=== PATIENT | female | born 1970 | race Caucasian/White ===

== ENCOUNTER 2017-11-25 15:38 | Emergency (ER) | payer OTHER ==
[~2017-11-25] VITALS: Ht 152.4 cm; Wt 56.7 kg
[2017-11-25] MEDS ORDERED: ATOR20 PO (15:57)
[2017-11-25] MEDS ORDERED: CLON1 PO (15:57)
[2017-11-25] MEDS ORDERED: VITAMIN D250000 UNIT PO (15:57)
[2017-11-25] MEDS ORDERED: Ventolin/Prove6.7 GM INH (15:57)
[2017-11-25] MEDS ORDERED: METPRE4DP PO (15:57)
[2017-11-25 16:56] LABS: BASOPHILS ABSOLUTE AUTO 0.06 K/mm3 (0.00-0.23); BASOPHILS PERCENT AUTO 1 % (0-2); EOSINOPHILS ABSOLUTE AUTO 0.05 K/mm3 (0.00-0.68); EOSINOPHILS PERCENT AUTO 1 % (0-6); Hemoglobin 19.3 g/dL (11.5-16.0); IMMATURE GRAN ABSOLUTE AUTO 0.02 K/mm3 (0.00-0.10); IMMATURE GRAN PERCENT AUTO 0 % (0-1); LYMPHOCYTES PERCENT AUTO 23 % (21-46); MONOCYTES PERCENT AUTO 6 % (4-13); Mean Corpuscular HGB Conc 34.6 g/dL (31.5-36.5); Mean Corpuscular Volume 90 fL (80-100); NEUTROPHILS ABSOLUTE AUTO 6.25 K/mm3 (1.96-9.15); NEUTROPHILS PERCENT AUTO 70 % (41-73); Platelet Count 86 K/mm3 (150-400); RDW Coefficient Variation 12.6 % (11.7-14.2); RDW Standard Deviation 41.4 fL (35.1-46.3); Red Blood Cell Count 6.22 M/mm3 (3.80-5.20); White Blood Cell Count 8.98 K/mm3 (4.00-11.30)
[2017-11-25 17:01] LABS: Hematocrit 55.8 % (33.0-51.0)
[2017-11-25 17:15] LABS: Source, Urine Clean Catch
[2017-11-25 17:19] LABS: Ethanol (Alcohol), Blood, Med <3 mg/dL; Salicylate 9.9 mg/dL (2.8-20.0)
[2017-11-25 17:21] LABS: Appearance, Urine Clear (Clear); Bilirubin, Urine Neg (Neg); Blood, Urine 1+ (Neg); Color, Urine Yellow (P-Yellow); Glucose Qualitative, Urine Neg (Neg); Ketones, Urine 2+ (Neg); Leukocyte Esterase, Urine 2+ (Neg); Nitrite, Urine Neg (Neg); Protein, Urine Neg (Neg); Urobilinogen, Urine 1+ (Normal)
[2017-11-25 17:26] LABS: Alanine Aminotransfer (ALT/SGP 18 U/L (12-78); Albumin, Blood 3.9 g/dL (3.4-5.0); Alk Phos 145 U/L (50-136); Anion Gap 11 mmol/L (6-16); Aspartate Aminotrans (AST/SGOT 16 U/L (12-37); Bilirubin, Total 0.9 mg/dL (0.1-1.0); Blood Urea Nitrogen 6 mg/dL (8-24); CO2, Blood 25 mmol/L (21-32); Calcium, Blood 9.6 mg/dL (8.5-10.1); Chloride, Blood 97 mmol/L (98-108); Creatinine, Blood 0.67 mg/dL (0.40-1.00); Globulin, Blood 3.9 g/dL (2.2-4.0); Glomerular Filtration Rate >60 (60-); Glucose, Blood 94 mg/dL (70-99); Potassium, Blood 3.5 mmol/L (3.5-5.5); Sodium, Blood 133 mmol/L (136-145); Total Protein, Blood 7.8 g/dL (6.4-8.2)
[2017-11-25 17:42] LABS: U Amphetamine Screen Not Detected; U Barbituate Screen Not Detected; U Benzodiazapine Screen DETECTED; U Buprenorphine Screen Not Detected; U Cannabinoids Screen Not Detected; U Cocaine Screen Not Detected; U Methadone Screen Not Detected; U Methamphetamine Screen Not Detected; U Opiates Screen Not Detected; U Oxycodone Screen Not Detected; U Phencyclidine Screen Not Detected; U Propoxyphene Screen Not Detected
[2017-11-25 17:46] LABS: Bacteria Few /hpf; Squamous Epithelial Cells Mod /hpf (Few)
[2017-11-25 18:23] LABS: Acetaminophen, Random <2.0 ug/mL (10.0-30.0)
== END 2017-11-25 20:05 | disposition home or self-care (01) ==
LOC: ER 15:38
PROVIDERS: Internal Medicine
DX: T47.6X2A Poisoning by antidiarrheal drugs, intentional self-harm, initial encounter (principal); F41.9 Anxiety disorder, unspecified; F31.9 Bipolar disorder, unspecified; F17.200 Nicotine dependence, unspecified, uncomplicated; Z88.1 Allergy status to other antibiotic agents; Z88.8 Allergy status to other drugs, medicaments and biological substances; Z79.899 Other long term (current) drug therapy; R45.851 Suicidal ideations; F43.10 Post-traumatic stress disorder, unspecified
CPT/HCPCS: 80053; 81001; 81025; 84443; 85025; 87086; 99284; G0480; Q3014

== ENCOUNTER 2018-10-22 11:37 | Inpatient (IN) | payer OTHER ==
[~2018-10-22] VITALS: Ht 165.1 cm; Wt 54.8 kg
[~2018-10-22 11:37] MED LIST: ATOR20 PO; CLON1 PO; METPRE4DP PO; VITAMIN D250000 UNIT PO; Ventolin/Prove6.7 GM INH
[2018-10-22 12:00] LABS: Calcium, Ionized (POC) 0.98 mmol/L (1.10-1.46); Chloride (POC) 95 mmol/L (98-108); Creatinine (POC) 0.5 mg/dL (0.6-1.0); Glucose (ISTAT POC) 56 mg/dL (70-99); Hemoglobin (POC) 17.3 g/dL (12.0-16.0); Potassium (POC) 3.3 mmol/L (3.5-5.5); Sodium (POC) 133 mmol/L (135-148); Total CO2 (POC) 24 mmol/L (21-32)
[2018-10-22 12:02] LABS: BASOPHILS ABSOLUTE AUTO 0.04 K/mm3 (0.00-0.23); BASOPHILS PERCENT AUTO 0 % (0-2); EOSINOPHILS PERCENT AUTO 0 % (0-6); Hematocrit 47.9 % (33.0-51.0); Hemoglobin 16.3 g/dL (11.5-16.0); IMMATURE GRAN ABSOLUTE AUTO 0.08 K/mm3 (0.00-0.10); IMMATURE GRAN PERCENT AUTO 1 % (0-1); LYMPHOCYTES ABSOLUTE AUTO 1.27 K/mm3 (0.84-5.20); LYMPHOCYTES PERCENT AUTO 8 % (21-46); MONOCYTES PERCENT AUTO 9 % (4-13); Mean Corpuscular Volume 97 fL (80-100); Mean Platelet Volume 12.5 fL (9.1-12.4); NEUTROPHILS ABSOLUTE AUTO 13.95 K/mm3 (1.96-9.15); NEUTROPHILS PERCENT AUTO 82 % (41-73); Platelet Count 99 K/mm3 (150-400); RDW Standard Deviation 50.4 fL (35.1-46.3); Red Blood Cell Count 4.94 M/mm3 (3.80-5.20); White Blood Cell Count 16.94 K/mm3 (4.00-11.30)
[2018-10-22 12:25] LABS: Alanine Aminotransfer (ALT/SGP 30 U/L (12-78); Albumin, Blood 3.3 g/dL (3.4-5.0); Alk Phos 105 U/L (50-136); Anion Gap 10 mmol/L (6-16); Aspartate Aminotrans (AST/SGOT 75 U/L (12-37); Bilirubin, Total 0.8 mg/dL (0.1-1.0); Blood Urea Nitrogen 10 mg/dL (8-24); Bun/Creatinine Ratio 18.1 (12.0-20.0); CO2, Blood 25 mmol/L (21-32); Calcium, Blood 7.6 mg/dL (8.5-10.1); Chloride, Blood 100 mmol/L (98-108); Creatinine, Blood 0.55 mg/dL (0.40-1.00); Ethanol (Alcohol), Blood, Med 3 mg/dL; Globulin, Blood 3.4 g/dL (2.2-4.0); Glomerular Filtration Rate >60 (60-); Glucose, Blood 52 mg/dL (70-99); Potassium, Blood 3.4 mmol/L (3.5-5.5); Salicylate 6.1 mg/dL (2.8-20.0); Sodium, Blood 135 mmol/L (136-145); Thyroxine (T4) 10.1 ug/dL (4.8-13.9); Total Protein, Blood 6.7 g/dL (6.4-8.2)
[2018-10-22 12:30] LABS: Thyroid Stimulating Hormone 0.456 uIU/mL (0.360-4.800)
[2018-10-22 12:54] LABS: Acetaminophen, Random <2.0 ug/mL (10.0-30.0)
[2018-10-22 14:00] LABS: U Amphetamine Screen Not Detected; U Barbituate Screen Not Detected; U Benzodiazapine Screen Not Detected; U Buprenorphine Screen Not Detected; U Cannabinoids Screen Not Detected; U Cocaine Screen Not Detected; U Methadone Screen Not Detected; U Methamphetamine Screen Not Detected; U Opiates Screen Not Detected; U Oxycodone Screen Not Detected; U Phencyclidine Screen Not Detected; U Propoxyphene Screen Not Detected
[2018-10-22 14:35] LABS: PCO2 Arterial 37.4 mmHg (35-45); PO2 Arterial 244 mmHg (80-100); pH Blood Arterial 7.48 (7.35-7.45)
[2018-10-22] MEDS ORDERED: OLAN2.5 PO (14:50)
--- NOTE | 2018-10-22 14:50 | NUR ---
PATIENT IS UNRESPONSIVE UNCLE GAVE SNEBARRY PERMISSION TO PROVIDE CARE ON 10/23/18.
--- NOTE | 2018-10-22 17:09 | NUR ---
1425 PT ADMITTED TO ICU-16 VIA STRETCHER. PT HAVING COPIOUS ORAL SECRETIONS OF CLEAR RETURN. PT IS NOT RESPONSIVE TO VERBAL STIMULATION, ON PROPOFOL AT THIS TIME. NS AT 150MML AND DEC TO 100ML PER ORDER. HARRIS NOTED. UNCLE INDICATED PT HAS HAD CHRONIC DIARRHEA FOR 7-SANTO YEARS AND RX WITH IMODIUM PO. PT LUNGS CLEAR, ABD SOFT, HARRIS PATENT OF YELLOW URINE, IV'S TIMES 2. OG TO LIS WITH CLEAR AND OLD BLOODY FLECKS NOTED. PT IS RESTRAINED DUE TO INTUBATION AND ALC. PROPOFOL IS AT 40MCG. PT IS IN NSR. VENT AC 16, 350,45%, PEEP 5, AND WILL TITRATE FIO2 NEEDED.
[2018-10-22 17:22] LABS: Magnesium, Blood 1.7 mg/dL (1.6-2.4); Phosphorus, Blood 2.7 mg/dL (2.5-4.9)
--- NOTE | 2018-10-22 17:50 | NUR ---
1715 PT NOTED TO BE HAVING SOME TWITCHING PRIMARILY OF L THIGH. DR LOZANO AWARE. PROPOFOL INC TO 45MCG PT TOLERATES AND WILL CONT TO MONITOR FOR REPEAT ACTIVITY. TWITCHING ACTIVITY WAS NOTED FOR ABOUT 10 MIN+/-.
--- NOTE | 2018-10-22 18:33 | NUR ---
PT RESTING QUIETLY W/O TWITCHING SIGNS. BP SOMEWHAT LOW WITH INCREASE TO 45MCG OF PROPOFOL. PROPOFOL DEC. TO 35MCG AND WILL FOLLOW WITH NOTED BP'S. PT VENT SETTINGS NOTED. PT CONT COPIOUS CLEAR ORAL SECREATIONS. IVF NS AT 100ML AND PROPOFOL ABOVE. SATS GOOD.
--- NOTE | 2018-10-22 20:17 | NUR ---
START OF SHIFT: REPORT FROM DAYSI FLEMING. PT ON VENT: AC 16; Vt 350; PEEP 5.0; AND FiO2 25% SATS 98% PT LYING SUPINE HOB 30'. VSS. PT WITH COPIOUS AMOUNT OF CLEAR ORAL SECRETIONS DRAINING FROM MOUTH. PT GIVEN ORAL SUCTIONING. LS CLEAR. LILI 5mm. PT WITH TWITCHING TO LEFT LEG AND OCCASIONALLY FROM CORE. PT FEET POINTED SLIGHTLY INWARD BUT HANDS AND ARMS APPEAR RELAXED AND NORMAL POSITIONING. SKIN PWD. TEMP HARRIS TO GRAVITY PATENT AND DRAINING; TEMP CURRENTLY 99.7 DEGREES. OG TO LIS DRAINING CLEAR BROWN TINGED DRAINAGE WITH SOME SEDIMENTS. BILATERL SOFT WRIST RESTRAINTS IN PLACE. PT EXT CAP REFILL <2 X4 WITH STRONG PULSES X4. WILL CONTINUE TO MONITOR.
--- NOTE | 2018-10-23 01:04 | NUR ---
NO NEW CHANGES: PT REMAINS INTUBATED. VENT: AC 16; Vt 350; PEEP 5.0; FiO2 25%. VSS. LILI 5mm SLUGGISH. PROPOFOL TITRATED BETWEEN 30-40mcg/kg/min. PT CONTINUES WITH COPIOUS AMOUNT OF ORAL SECRETIONS. LEFT LEG AND TORSO TWITCHING COMES AND GOES. TURN Q2 HOURS. CONTINUE TO MONITOR.
[2018-10-23 03:29] LABS: BASOPHILS ABSOLUTE AUTO 0.03 K/mm3 (0.00-0.23); BASOPHILS PERCENT AUTO 0 % (0-2); EOSINOPHILS ABSOLUTE AUTO 0.01 K/mm3 (0.00-0.68); EOSINOPHILS PERCENT AUTO 0 % (0-6); Hematocrit 41.1 % (33.0-51.0); Hemoglobin 13.8 g/dL (11.5-16.0); IMMATURE GRAN ABSOLUTE AUTO 0.03 K/mm3 (0.00-0.10); IMMATURE GRAN PERCENT AUTO 0 % (0-1); LYMPHOCYTES ABSOLUTE AUTO 1.89 K/mm3 (0.84-5.20); LYMPHOCYTES PERCENT AUTO 18 % (21-46); MONOCYTES ABSOLUTE AUTO 0.62 K/mm3 (0.16-1.47); MONOCYTES PERCENT AUTO 6 % (4-13); Mean Corpuscular HGB 33.1 pg (26.0-34.0); Mean Corpuscular HGB Conc 33.6 g/dL (31.5-36.5); Mean Corpuscular Volume 99 fL (80-100); NEUTROPHILS ABSOLUTE AUTO 8.25 K/mm3 (1.96-9.15); NEUTROPHILS PERCENT AUTO 76 % (41-73); Platelet Count 74 K/mm3 (150-400); RDW Coefficient Variation 14.4 % (11.7-14.2); RDW Standard Deviation 52.5 fL (35.1-46.3); Red Blood Cell Count 4.17 M/mm3 (3.80-5.20); White Blood Cell Count 10.83 K/mm3 (4.00-11.30)
[2018-10-23 03:34] LABS: Mean Platelet Volume 13.6 fL (9.1-12.4)
[2018-10-23 03:48] LABS: Anion Gap 9 mmol/L (6-16); Blood Urea Nitrogen 6 mg/dL (8-24); Bun/Creatinine Ratio 10.3 (12.0-20.0); CO2, Blood 27 mmol/L (21-32); Calcium, Blood 6.9 mg/dL (8.5-10.1); Chloride, Blood 110 mmol/L (98-108); Creatinine, Blood 0.59 mg/dL (0.40-1.00); Glomerular Filtration Rate >60 (60-); Glucose, Blood 109 mg/dL (70-99); Potassium, Blood 2.7 mmol/L (3.5-5.5)
[2018-10-23 03:49] LABS: Sodium, Blood 146 mmol/L (136-145)
--- NOTE | 2018-10-23 05:30 | NUR ---
SEDATION VAC: PROPOFOL OFF AT 0517. PT'S TWITCHING HAS RETURNED. PT WITH OCCASIONAL EYE BLINKING BUT IS NOT FOLLOWING DIRECTIONS.
--- NOTE | 2018-10-23 06:13 | NUR ---
PT WITH NO NEW CHANGES T/O NOC: PT REMAINS IN A SLIGHT DECERABRATE POSTURING STATE WITH PLANTAR FLEXION. PT'S PUPILS REMAIN 5mm AND SLUGGISH FAVORING GAZE TO THE LEFT. PT BECAME SLIGHTLY HYPOTENSIVE. HOSPITALIST IN DEPT CAME TO BEDSIDE AND ORDERED NS 500cc BOLUS AND INCREASED PT'S INFUSION OF NS TO 125 FOR TWO LITERS. PT CONTINUES WITH COPIOUS AMOUNT OF ORAL SECRETIONS (125 cc OUT IN THE LAST HOUR). VENT SETTINGS REMAIN: AC 16; Vt 350; PEEP 5.0; FiO2 25%. PT'S KCL THIS AM 2.7 WITH NEW ORDER FOR REPLACEMENT. CURRENTLY PROPOFOL AT 25mcg/kg/min AND NS 125/hr. WILL CONTINUE TO MONITOR.
--- NOTE | 2018-10-23 07:00 | NUR ---
ASSUMED CARE OF PT. PT IS SEDATED WITH PROPOFOL AT 25MCG/KG/MIN. PT IS SLIGHTLY HYPOTENSIVE MOSTLY IN THE 80s. MAP >60. URINE OUTPUT CURRENTLY IS 85ML. WILL DO SEDATION VACATION
[2018-10-23 07:40] LABS: Magnesium, Blood 2.4 mg/dL (1.6-2.4); Phosphorus, Blood 2.2 mg/dL (2.5-4.9)
--- NOTE | 2018-10-23 08:00 | NUR ---
SEDATION VACATION: TURNED OFF PROPOFOL @ 0730. PROPOFOL WAS OFF FOR 30MINS. PT DOES NOT OPEN EYES TO VOICE NEITHER TO DEEP PAIN STIMULATION. CORNEAL AND COUGH REFLEX ARE PRESENT. GAG AND SWALLOWING REFLEXES ARE ABSENT. ABNORMAL FLEXION NOTED WITH SUCTIONING. INVOLUNTARY TREMORS NOTED ON HER LEFT LEG AND HEAD. NOT FOLLOWING COMMANDS. RESTARTED PROPOFOL BACK AFTER SEDATION VACATION TO 25MCG/KG/MIN DUE TO PT'S INCREASED MYCLONIC JERKS WHEN OFF SEDATION.
--- NOTE | 2018-10-23 08:10 | NUR ---
DR. AMBRIZ WAS NOTIFIED REGARDING PT'S BLOOD PRESSURE. ORDERS RECEIVED TO GIVE PT 500ML NS BOLUS.
--- NOTE | 2018-10-23 10:30 | NUR ---
BP STILL ON THE 80s. DR. SMITH WAS NOTIFIED REGARDING THIS. INFORMED REGARDING PT'S NEUROLOGICAL STATUS WELL. ORDERS RECEIVED.
--- NOTE | 2018-10-23 11:00 | NUR ---
PT'S UNCLE JESSICA, CAME BY TO SEE PATIENT. UPDATED HIM OF PT'S STATUS. HE STATED PT HAS A 27 YR OLD DAUGHTER AND PT'S PARENTS ARE STILL ALIVE.
--- NOTE | 2018-10-23 11:30 | NUR ---
DR. SMITH CAME BY TO EVALUATE PT. SHE WAS ABLE TO TALK TO PT'S UNCLE REGARDING PT'S CONDITION.
--- NOTE | 2018-10-23 13:00 | NUR ---
PT'S UNCLE JESSICA, CALLED AND STATED THAT WHEN HE REVIEWED PT'S MEDICATION BOTTLES THAT WERE FILLED, HE STATED THAT THE EMPTY BOTTLE WAS FROM THE JULY BOTTLE. THE AUGUST BOTTLE WAS STILL IN ACCURATE COUNT. HE STATED THAT THERE WAS NO CLONAZEPAM BOTTLE AT PT'S BEDSIDE WHEN SHE BECAME UNRESPONSIVE. HE JUST THOUGHT THAT MAYBE PT HAD OVERDOSED ON CLONAZEPAM DUE TO PT'S HISTORY.
[2018-10-23 13:17] LABS: Albumin, Blood 2.2 g/dL (3.4-5.0); Anion Gap 7 mmol/L (6-16); Blood Urea Nitrogen 6 mg/dL (8-24); Bun/Creatinine Ratio 10.4 (12.0-20.0); CO2, Blood 25 mmol/L (21-32); Calcium, Blood 6.8 mg/dL (8.5-10.1); Chloride, Blood 116 mmol/L (98-108); Creatinine, Blood 0.58 mg/dL (0.40-1.00); Glomerular Filtration Rate >60 (60-); Glucose, Blood 117 mg/dL (70-99); Phosphorus, Blood 1.5 mg/dL (2.5-4.9); Potassium, Blood 3.6 mmol/L (3.5-5.5); Sodium, Blood 148 mmol/L (136-145)
--- NOTE | 2018-10-23 13:45 | NUR ---
EEG WAS STARTED AT THIS TIME.
[2018-10-23 14:11] LABS: Source, Urine Catheter
[2018-10-23 14:27] LABS: Appearance, Urine Turbid (Clear); Bilirubin, Urine Neg (Neg); Blood, Urine Neg (Neg); Glucose Qualitative, Urine Neg (Neg); Ketones, Urine 1+ (Neg); Leukocyte Esterase, Urine 1+ (Neg); Nitrite, Urine Neg (Neg); Protein, Urine 2+ (Neg); Urobilinogen, Urine NORM (Normal)
--- NOTE | 2018-10-23 14:30 | NUR ---
EEG DONE AT THIS TIME.
[2018-10-23 14:47] LABS: Color, Urine Yellow (P-Yellow)
[2018-10-23 14:49] LABS: Amorphous Heavy (0-Heavy)
[2018-10-23 14:50] LABS: Red Blood Cells, Urine 0-2 /hpf (0-2); Squamous Epithelial Cells Rare /hpf (Few); White Blood Cells, Urine 0-2 /hpf (0-5)
[2018-10-23 14:51] LABS: Bacteria Few /hpf
[2018-10-23 14:59] LABS: U Amphetamine Screen Not Detected; U Barbituate Screen Not Detected; U Benzodiazapine Screen DETECTED; U Buprenorphine Screen Not Detected; U Cannabinoids Screen DETECTED; U Cocaine Screen Not Detected; U Methadone Screen Not Detected; U Methamphetamine Screen Not Detected; U Opiates Screen Not Detected; U Oxycodone Screen Not Detected; U Phencyclidine Screen Not Detected; U Propoxyphene Screen Not Detected
--- NOTE | 2018-10-23 15:31 | NUR ---
DR. SMITH WAS NOTIFIED REGARDING PT'S REPEAT URINE TOXICOLOGY RESULTS. INFORMED HER THAT PT'S BLOOD PRESSURE STILL ON THE 80s DESPITE THE 1.5 LITER NS BOLUS. SHE ORDERED TO KEEP MAP 60 AND GREATER.
--- NOTE | 2018-10-24 01:17 | NUR ---
DR. SMITH NOTIFIED OF PT'S LOWER LIP, AND NOW TONGUE AND LOWER JAW SWELLING. NO NEW ORDERS AT THIS TIME. WILL NOTIFY AGAIN IF SYMPTOMS WORSEN.
[2018-10-24 04:15] LABS: BASOPHILS ABSOLUTE AUTO 0.02 K/mm3 (0.00-0.23); BASOPHILS PERCENT AUTO 0 % (0-2); EOSINOPHILS ABSOLUTE AUTO 0.04 K/mm3 (0.00-0.68); EOSINOPHILS PERCENT AUTO 0 % (0-6); Hematocrit 37.7 % (33.0-51.0); Hemoglobin 12.3 g/dL (11.5-16.0); IMMATURE GRAN ABSOLUTE AUTO 0.03 K/mm3 (0.00-0.10); IMMATURE GRAN PERCENT AUTO 0 % (0-1); LYMPHOCYTES ABSOLUTE AUTO 2.51 K/mm3 (0.84-5.20); LYMPHOCYTES PERCENT AUTO 27 % (21-46); MONOCYTES PERCENT AUTO 5 % (4-13); Mean Corpuscular HGB 33.1 pg (26.0-34.0); Mean Corpuscular HGB Conc 32.6 g/dL (31.5-36.5); Mean Corpuscular Volume 101 fL (80-100); NEUTROPHILS ABSOLUTE AUTO 6.08 K/mm3 (1.96-9.15); NEUTROPHILS PERCENT AUTO 66 % (41-73); Platelet Count 69 K/mm3 (150-400); RDW Coefficient Variation 14.9 % (11.7-14.2); RDW Standard Deviation 55.1 fL (35.1-46.3); Red Blood Cell Count 3.72 M/mm3 (3.80-5.20); White Blood Cell Count 9.18 K/mm3 (4.00-11.30)
[2018-10-24 04:26] LABS: Alanine Aminotransfer (ALT/SGP 25 U/L (12-78); Albumin/Globulin Ratio 0.7 (0.8-1.8); Alk Phos 80 U/L (50-136); Anion Gap 6 mmol/L (6-16); Aspartate Aminotrans (AST/SGOT 88 U/L (12-37); Blood Urea Nitrogen 5 mg/dL (8-24); Bun/Creatinine Ratio 10.4 (12.0-20.0); CO2, Blood 27 mmol/L (21-32); Calcium, Blood 7.2 mg/dL (8.5-10.1); Chloride, Blood 118 mmol/L (98-108); Creatinine, Blood 0.48 mg/dL (0.40-1.00); Glomerular Filtration Rate >60 (60-); Glucose, Blood 103 mg/dL (70-99); Magnesium, Blood 2.5 mg/dL (1.6-2.4); Phosphorus, Blood 1.4 mg/dL (2.5-4.9); Potassium, Blood 2.9 mmol/L (3.5-5.5); Sodium, Blood 151 mmol/L (136-145)
[2018-10-24 04:36] LABS: Mean Platelet Volume 13.6 fL (9.1-12.4)
--- NOTE | 2018-10-24 04:41 | NUR ---
PT REMAINS UNRESPONSIVE, ALTHOUGH, SEEMINGLY MORE SENSITIVE TO REPOSITIONING. PT WITH COUGH BUT NO GAG. LS CLEAR. VSS. PT WITH LESS ORAL SECRETIONS THAN PREVIOUS SHIFT. NOT MYCLONIC JERKS THIS SHIFT THUS FAR EXCEPT FOR OCCASIONAL LEFT SHOULDER TWITCHES. VSS. CONTINUING TO MONITOR.
--- NOTE | 2018-10-24 05:26 | NUR ---
PROPOFOL OFF AT 0505. PT CONTINUES NON-RESPONSIVE. PT JUST NOW BEGINNING SLIGHT MYCLONIC JERKING OF LEFT SHOULDER.
--- NOTE | 2018-10-24 06:29 | NUR ---
PT REMAINED NON-RESPONSIVE T/O BREATHING TRIAL. MYOCLONIC JERKING MINIMAL COMPARED TO PREVIOUS DAYS. PROPOFOL RESTARTED AT 15 mcg/kg/min. VSS. VENT SETTINGS RETURNED TO AC 16; Vt 350; PEEP 5.0; FiO2 25%.
--- NOTE | 2018-10-24 07:04 | NUR ---
ASSUMED CARE OF PT. PT IS SEDATED WITH PROPOFOL @ 15MCG/KG/MIN. PT IS VENTED & INTUBATED. PT IS NOT ANY RESTRAINTS. NOT FOLLOWING COMMANDS.
--- NOTE | 2018-10-24 08:30 | NUR ---
SEDATION VACATION: PROPOFOL HAS BEEN OFF FOR 15MINS. DR. LEWIS CAME BY TO SEE PT. UPDATED HIM OF PT'S STATUS. PT'S NEUROLOGICAL STATUS IS: NO BABINSKI REFLEX, POSITIVE DOLL'S EYES. NOT FOLLOWING COMMANDS. DECORTICATE POSTURING NOTED. MINIMAL CORNEAL REFLEX. GAG, SWALLOW REFLEXES ARE ABSENT. PATELLAR REFLEX PRESENT. PUPILS ARE BRISKLY REACTIVE TO LIGHT WITH 4MM DILATION.
--- NOTE | 2018-10-24 10:00 | NUR ---
SEEN BY DR. LEWIS AGAIN. NOTED PT TO BE TWITCHING ON THE R ARM. PT HAS BEEN OFF PROPOFOL FOR AT LEAST ALMOST 2 HOURS.
--- NOTE | 2018-10-24 12:00 | NUR ---
NO NEUROLOGIC CHANGES NOTED FROM INITIAL ASSESSMENT. TUBE FEEDING WITH PIVOT 1.5 ORDERED.
--- NOTE | 2018-10-24 15:45 | NUR ---
PT'S FAMILY AT BEDSIDE. UPDATED THEM OF PT'S STATUS, PT'S NEUROLOGICAL CONDITION. EXPLAINED TO THEM REGARDING NEUROLOGICAL REFLEXES. REASONS OF PT'S UNRESPONSIVENESS.
--- NOTE | 2018-10-24 16:30 | NUR ---
Met with family. Her uncle is who she lives with. He states her father is next of kin and will be here in a few days. They state they make decisions as a family . Advised them we need a decision maker from the family. pt came to live with her uncle almost two years ago. She has had minimal medical care. She has chronic diarrhea. Uncle states he stopped providing her with alcohol about a year ago. He states she gets it form other sources. She has been over using imodium. she has terrible chronic back pain. uncle states he has given her some of his pain pills once in ahwil with not much help she has smoked minimal marijuana as far as he knows. She finds excuses to not go to appoinments. Family displays low education level struggling to understand her needs. They display lot of history of substance abuse. They relay her mental illness has been been severe. They want us to fix her diarrhea. family very attentive and admit that she manipulates them. Will update care manger for [facility] plan. Will see if APS has been involved with her. She moved here from [place]. reviewed care and plan.
[2018-10-24 16:32] LABS: Albumin, Blood 1.9 g/dL (3.4-5.0); Anion Gap 6 mmol/L (6-16); Blood Urea Nitrogen 5 mg/dL (8-24); Bun/Creatinine Ratio 10.4 (12.0-20.0); CO2, Blood 27 mmol/L (21-32); Calcium, Blood 7.2 mg/dL (8.5-10.1); Chloride, Blood 115 mmol/L (98-108); Creatinine, Blood 0.48 mg/dL (0.40-1.00); Glomerular Filtration Rate >60 (60-); Glucose, Blood 161 mg/dL (70-99); Magnesium, Blood 2.4 mg/dL (1.6-2.4); Phosphorus, Blood 2.7 mg/dL (2.5-4.9); Potassium, Blood 2.8 mmol/L (3.5-5.5); Sodium, Blood 148 mmol/L (136-145)
--- NOTE | 2018-10-24 17:15 | NUR ---
DR. LEWIS WAS NOTIFIED REGARDING 1600 LBAS. INFORMED HIM OF PT'S URINE OUTPUT OF 200ML FROM 0600 UNTIL THIS TIME. ORDERS RECEIVED.
--- NOTE | 2018-10-24 18:22 | NUR ---
SHIFT ASSESSMENT: PT IS STILL UNRESPONSIVE. NO SEDATION. NOT ON RESTRAINTS. PROPOFOL HAS BEEN OFF SINCE EARLY THIS MORNING. PT HAD A LARGE LIQUID, JELLY STOOL. PT IS ON TUBE FEEDING WHICH SHE IS TOLERATING. T-MAX IS 100.0. PT HAS BEEN RECEIVING POTASSIUM REPLACEMENTS.
--- NOTE | 2018-10-24 19:20 | NUR ---
ASSUMED CARE PT NOT SEDATED ON VENT WITH SETTINGS AT AC16/350/25%/5. PT DOES NOT HAVE ANY PURPOSEFUL MOVEMENT, NO GAG, NO SWALLOW, NO CORNEAL REFLEX OR WITHDRAWL FROM PAIN. PT DOES COUGH WITH DEEP SUCTION AND HAS COPIOUS ORAL AND ETT SECRETIONS. TF INITIATED TODAY AND CURRENTLY AT 20ML/HR WITH GOAL OF 30, PLAN TO INCREASE RESIDUALS ALLOW. VSS, ECG SHOWS SR AND O2 SATS >95%. D5 AND 100ML/HR.
--- NOTE | 2018-10-25 01:10 | NUR ---
SZ ACTIVITY PT HAVING RHYTHMIC TWITCHING TO LEFT HAD AND LEG. IMAGE CONSULTANT ANNEL HERE, UPDATED, REQUESTED AND OBTAINED ORDER FOR ATIVAN NOW AND PRN FOR SZ ACTIVITY. 4MG ADMINISTED WITH COMPLETE RESOLUTION OF RHYTHMIC TWITCHING.
[2018-10-25 04:36] LABS: BASOPHILS ABSOLUTE AUTO 0.03 K/mm3 (0.00-0.23); BASOPHILS PERCENT AUTO 0 % (0-2); EOSINOPHILS ABSOLUTE AUTO 0.08 K/mm3 (0.00-0.68); EOSINOPHILS PERCENT AUTO 1 % (0-6); Hematocrit 37.2 % (33.0-51.0); IMMATURE GRAN ABSOLUTE AUTO 0.02 K/mm3 (0.00-0.10); IMMATURE GRAN PERCENT AUTO 0 % (0-1); LYMPHOCYTES ABSOLUTE AUTO 2.37 K/mm3 (0.84-5.20); LYMPHOCYTES PERCENT AUTO 29 % (21-46); MONOCYTES ABSOLUTE AUTO 0.46 K/mm3 (0.16-1.47); MONOCYTES PERCENT AUTO 6 % (4-13); Mean Corpuscular HGB 32.5 pg (26.0-34.0); Mean Corpuscular HGB Conc 32.3 g/dL (31.5-36.5); Mean Corpuscular Volume 101 fL (80-100); NEUTROPHILS ABSOLUTE AUTO 5.16 K/mm3 (1.96-9.15); NEUTROPHILS PERCENT AUTO 64 % (41-73); Platelet Count 76 K/mm3 (150-400); RDW Coefficient Variation 14.6 % (11.7-14.2); RDW Standard Deviation 54.5 fL (35.1-46.3); Red Blood Cell Count 3.69 M/mm3 (3.80-5.20); White Blood Cell Count 8.12 K/mm3 (4.00-11.30)
[2018-10-25 04:50] LABS: Mean Platelet Volume 13.3 fL (9.1-12.4)
[2018-10-25 04:57] LABS: Anion Gap 6 mmol/L (6-16); Blood Urea Nitrogen 5 mg/dL (8-24); CO2, Blood 28 mmol/L (21-32); Calcium, Blood 7.4 mg/dL (8.5-10.1); Chloride, Blood 113 mmol/L (98-108); Creatinine, Blood 0.46 mg/dL (0.40-1.00); Glomerular Filtration Rate >60 (60-); Glucose, Blood 134 mg/dL (70-99); Magnesium, Blood 2.2 mg/dL (1.6-2.4); Phosphorus, Blood 2.2 mg/dL (2.5-4.9); Potassium, Blood 2.9 mmol/L (3.5-5.5); Sodium, Blood 147 mmol/L (136-145)
--- NOTE | 2018-10-25 05:18 | NUR ---
UPDATE PT HAS COPIOUS ORAL SECRETIONS WITH OCCASIONAL STREAKS OF BLOOD. BITE BLOCK INSERTED INTO MOUTH, ABLE TO VISUALIZE TONGUE LACERATIONS TO LEFT SIDE WELL SOME BLEEDING TO LEFT SIDE BUT UABLE TO DETERMINE WHERE LEFT SIDE BLEEDING IS COMING FROM. UNDERSIDE OF BETH IS ALSO MACERATED.
[2018-10-25 05:32] LABS: PCO2 Arterial 37.2 mmHg (35-45); PO2 Arterial 68.5 mmHg (80-100); pH Blood Arterial 7.49 (7.35-7.45)
--- NOTE | 2018-10-25 06:25 | NUR ---
SHIFT SUMMARY PT REMAINS INTUBATED WITH NO CHANGE TO PREVIOUSLY NOTED VENT SETTINGS. PT TOLERATED PS TRIAL THIS AM BUT IS UNRESPONSIVE, HAS NO GAG, SWALLOW OR CORNEAL REFLES BUT DOES COUGH. WHEN COUGHING, DECORDICATE POSTURING NOTED. NO FURTHER RHYTHMIC TWITCHING NOTED SINCE ATIVAN ADMINISTRATION. TF AT GOAL, NO RESIDUALS FOR SHIFT. D5 AT 100ML/HR AND NS TKO. #1 KCL BAG OF 3 STARTED ON ELECTROLYTE PROTOCOL. VSS, ECG SHOWS SR AND O2 SATS 95%. BITE BLOCK REMAINS IN PLACE.
--- NOTE | 2018-10-25 08:00 | NUR ---
0700-ASSUMED CARE OF PT. PT IS INTUBATED. NO SEDATION. PT IS NOT ON RESTRAINTS. PT DOES NOT OPEN EYES TO VOICE. PUPILS ARE REACTIVE 4MM DILATION PT NOT FOLLOWING COMMANDS. PT CORNEAL REFLEX NOTED. BABINSKI NEGATIVE. PT IS FLACCID. COUGH REFLEX NOTED WITH DECORTICATE MOVEMENTS WITH SUCTIONING. NOTED TO HAVE MILD TWITCHING TO HER R ARM. AFEBRILE. PT TOLERATING TUBE FEEDINGS.
--- NOTE | 2018-10-25 08:30 | NUR ---
PT SEEN BY DR. LEWIS. NOTED PT WAS HAVING SOME RHYTHMIC TWITCH ON THE R ARM. DR. LEWIS HAD NOTICED THIS WELL. UPDATED HIM OF PT'S STATUS. ORDERS RECEIVED.
--- NOTE | 2018-10-25 10:00 | NUR ---
DR. CASTANEDA CALLED AND UPDATED HIM OF PT'S STATUS. HE STATED TO HOLD THE PROPOFOL DRIP AND ATIVAN UNTIL HE ASSESSED THE PATIENT.
--- NOTE | 2018-10-25 10:20 | NUR ---
AFTER REPOSITIONING PATIENT, RHYTHMIC MOVEMENTS WERE NOTED TO BILATERAL ARMS, FASTER MOVEMENTS TO THE LEFT ARM THAN THE RIGHT.
--- NOTE | 2018-10-25 10:50 | NUR ---
CONSENT FOR LUMBAR PUNCTURE WAS OBTAINED DR. CASTANEDA. PT'S UNCLE JESSICA HAS CONSENTED. DR. CASTANEDA WAS ABLE TO TALK TO PT'S FATHER GRETCHEN. THIS NURSE WAS ABLE TO TALK TO PT'S FAMILY WELL AND STATED " I TRUST JESSICA. HE IS HER HANDS AND DIAL INSPECTOR. HE CAN SIGN CONSENT FOR HER."
--- NOTE | 2018-10-25 11:00 | NUR ---
DR. CASTANEDA AT BEDSIDE. ASSISTED HIM OF LUMBAR PUNCTURE PROCEDURE.
[2018-10-25 12:29] LABS: Appearance, CSF Clear (Clear); Color, CSF No Color (No Color)
[2018-10-25 12:30] LABS: RBC Count, CSF 22 /mm3 (0-0); WBC Count, CSF 3 /mm3 (0-5)
[2018-10-25 12:37] LABS: Glucose, CSF 77 mg/dL (40-70)
[2018-10-25 12:42] LABS: Appearance, CSF Clear (Clear); Color, CSF No Color (No Color); RBC Count, CSF 58 /mm3 (0-0); WBC Count, CSF 2 /mm3 (0-5)
--- NOTE | 2018-10-25 12:42 | NUR ---
PROPOFOL WAS STARTED ORDERED @ 30MCG/KG/MIN.
--- NOTE | 2018-10-25 14:30 | NUR ---
PT'S UNCLE JESSICA AT BEDSIDE. UPDATED HIM OF PT'S STATUS. STOOL SAMPLE WAS COLLECTED AND SENT TO THE LAB FOR C-DIFF @ 6286. PT'S UNCLE HAD SIGNED BLOOD CONSENT.
[2018-10-25 14:50] LABS: Cryptococcus Neoformans/Gattii Not Detected (NOT DETECT); Enterovirus Not Detected (NOT DETECT); Escherichia Coli K1 Not Detected (NOT DETECT); Haemophilus Influenza Not Detected (NOT DETECT); Herpes Simplex Virus 1 Not Detected (NOT DETECT); Herpes Simplex Virus 2 Not Detected (NOT DETECT); Human Herpesvirus 6 Not Detected (NOT DETECT); Human Parechovirus Not Detected (NOT DETECT); Listeria Monocytogenes Not Detected (NOT DETECT); Neisseria Meningitidis Not Detected (NOT DETECT); Streptococcus Agalactiae Not Detected (NOT DETECT); Streptococcus Pneumoniae Not Detected (NOT DETECT); Varicella Zoster Virus Not Detected (NOT DETECT)
[2018-10-25 16:24] LABS: Phosphorus, Blood 3.5 mg/dL (2.5-4.9); Potassium, Blood 3.6 mmol/L (3.5-5.5)
--- NOTE | 2018-10-25 17:15 | NUR ---
DR. AMBRIZ WAS NOTIFIED REGARDING PT'S COPIOUS AMOUNT OF ORAL SECRETIONS. ORDERS RECEIVED.
--- NOTE | 2018-10-25 18:00 | NUR ---
SHIFT SUMMARY: PT IS STILL INTUBATED, NOW SEDATED WITH PROPOFOL AT 20MCG/KG/MIN. STILL SOME INCREASED ORAL SECRETIONS. PRESENT REFLEXES ARE: CORNEAL, SWALLOW AND GAG. PT HAD AN EPISODE WERE SHE STARTED COUGHING HARD AND WAS HAVING BRONCHOSPASMS THAT IT DROPPED HER HR DOWN TO LOW 48 BEATS PER MIN FOR A SHORT PERIOD OF TIME. NO RHYTHMIC MOVEMENTS NOTED SINCE PT RECEIVED ATIVAN AND PROPOFOL.
--- NOTE | 2018-10-25 19:30 | NUR ---
ASSUMED CARE PT REMAINS INTUBATED-SETTINGS AT AC 16/350/25%/5 AND NOW SEDATED VIA PROPOFOL AT 20MCG/KG/MIN-TITRATE TO SZ ACTIVITY. NO SZ ACTIVITY NOTED AT THIS TIME. PT NOW HAS A GAG, CORNEAL AND OCCASIONAL SWALLOW REFLEX BUT DECORTICATE POSTURES WITH COUGHING. LP COMPLETED ON DAY SHIFT, BANDANGE IN PLACE LUMBAR REGION IS CDI. LR AT 75ML/HR, NS TKO, TF AT GOAL OF 30ML/HR WITH NO RESIDUAL. BP LOW BUT WITH ADEQUATE MAP, EKG SHOWS SR. SCOPOLAMINE PATCH IN PLACE BUT PT CONTINUES TO HAVE COPIOUS ORAL AND ETT SECRETIONS.
--- NOTE | 2018-10-26 01:09 | NUR ---
BRADYCARDIA HR INITIALLY IN THE 70-80'S AND OCCASIONALLY UP IN THE 90'S AT START OF SHIFT. NOW HR AT 52-66. PT NOT COUGHING WHEN NOTED. RHYTHM STRIP PLACED ON CHART AND IS NOW A SINUS ARRHYTHMIA. DISCUSSED WITH GUS BECKFORD ON STANDBY FOR NOW.
--- NOTE | 2018-10-26 01:30 | NUR ---
DONOR LINE CALL OUT TO DONOR LINE. SPOKE WITH COORDINATOR DOYLE AND REVIEWED PT'S RECORDS. PER DOYLE, PT POTENTIAL CANDIDATE FOR ORGAN DONATION. A COORDINATOR WILL COME BY LATER TODAY TO COMPLETE A MORE THOROUGH ASSESSMENT. DONOR LINE REQUESTS CALL BACK FOR DECLINE IN NEURO STATUS, WHEN A FAMILY DECISION MAKER HAS BEEN IDENTIFIED OR IF FAMILY DECIDES TO WITHDRAW CARE.
--- NOTE | 2018-10-26 02:01 | NUR ---
BRADYCARDIA #2 DURING REPOSITIONING/CLEANING STOOL PT BEGAN COUGHING. HR DROPPED TO 35-SRIP PLACED ON CHART. COPIOUS ORAL & ETT SECRETIONS SUCTIONED. HR RETURNED TO 70'S WITHIN 2 MINUTES.
[2018-10-26 03:59] LABS: BASOPHILS ABSOLUTE AUTO 0.03 K/mm3 (0.00-0.23); BASOPHILS PERCENT AUTO 0 % (0-2); EOSINOPHILS ABSOLUTE AUTO 0.33 K/mm3 (0.00-0.68); EOSINOPHILS PERCENT AUTO 5 % (0-6); Hematocrit 35.1 % (33.0-51.0); Hemoglobin 11.5 g/dL (11.5-16.0); IMMATURE GRAN ABSOLUTE AUTO 0.02 K/mm3 (0.00-0.10); IMMATURE GRAN PERCENT AUTO 0 % (0-1); LYMPHOCYTES ABSOLUTE AUTO 2.48 K/mm3 (0.84-5.20); LYMPHOCYTES PERCENT AUTO 35 % (21-46); MONOCYTES ABSOLUTE AUTO 0.64 K/mm3 (0.16-1.47); MONOCYTES PERCENT AUTO 9 % (4-13); Mean Corpuscular HGB 33.6 pg (26.0-34.0); Mean Corpuscular HGB Conc 32.8 g/dL (31.5-36.5); Mean Corpuscular Volume 103 fL (80-100); Mean Platelet Volume 12.3 fL (9.1-12.4); NEUTROPHILS PERCENT AUTO 50 % (41-73); Platelet Count 81 K/mm3 (150-400); RDW Coefficient Variation 14.3 % (11.7-14.2); RDW Standard Deviation 54.4 fL (35.1-46.3); Red Blood Cell Count 3.42 M/mm3 (3.80-5.20)
[2018-10-26 04:20] LABS: Alanine Aminotransfer (ALT/SGP 21 U/L (12-78); Albumin, Blood 1.8 g/dL (3.4-5.0); Albumin/Globulin Ratio 0.6 (0.8-1.8); Alk Phos 74 U/L (50-136); Anion Gap 6 mmol/L (6-16); Aspartate Aminotrans (AST/SGOT 49 U/L (12-37); Bilirubin, Total 0.3 mg/dL (0.1-1.0); Blood Urea Nitrogen 7 mg/dL (8-24); Bun/Creatinine Ratio 15.2 (12.0-20.0); CO2, Blood 29 mmol/L (21-32); Calcium, Blood 7.6 mg/dL (8.5-10.1); Chloride, Blood 111 mmol/L (98-108); Creatinine, Blood 0.46 mg/dL (0.40-1.00); Glomerular Filtration Rate >60 (60-); Glucose, Blood 106 mg/dL (70-99); Magnesium, Blood 1.9 mg/dL (1.6-2.4); Potassium, Blood 3.9 mmol/L (3.5-5.5); Sodium, Blood 146 mmol/L (136-145); Total Protein, Blood 4.8 g/dL (6.4-8.2)
[2018-10-26 04:23] LABS: Phosphorus, Blood 3.4 mg/dL (2.5-4.9)
[2018-10-26 05:29] LABS: PCO2 Arterial 35.9 mmHg (35-45); PO2 Arterial 67.6 mmHg (80-100)
--- NOTE | 2018-10-26 07:09 | NUR ---
SHIFT SUMMARY SEE PREVIOUS NOTES FOR SHIFT. PT REMAINS INTUBATED, NO CHANGE TO PREVIOSLY NOTED SETTINGS. PT REMAINS UNRESPONSIVE, + COUGH, OCCASIONAL GAG AND CORNEAL REFLEX. PROPOFOL AT 10MCG/KG/MIN, LR AT 75ML/HR, TF AT GOAL WITH NO RESIDUALS. BP LOW BUT ADEQUATE MAP AND UOP. PT HAD TWO BRADYCARDIC EPISODES BUT NOTHING FURTHER. REPORT OFF TO GRZEGORZY.
--- NOTE | 2018-10-26 08:30 | NUR ---
INITIAL ASSESSMENT: 0700-ASSUMED CARE OF PT. PT IS SEDATED WITH PROPOFOL @ 10MCG/KG/MIN. PT IS AFEBRILE. 729-TURNED OFF PROPOFOL AT THIS TIME FOR SEDATION VACATION. 08-PT SEEN BY DR. LEWIS. INFORMED HIM THAT PT'S HAD EPISODES OF BRADYCARDIA AFTER BOUTS OF COUGHING TO LOW MID 30s. PUPILS ARE REACTIVE TO LIGHT BUT ANISOCORIC. LEFT PUPIL IS SLIGHTLY BIGGER THAN RIGHT. R PUPIL ABOUT 3.5 LEFT PUPIL ABOUT A 4MM DILATION. LEFT PUPIL GAZES TO THE LEFT WHILE RIGHT PUPIL IS GAZING STRAIGHT FORWARD. NO SEIZURE ACTIVITY NOTED WHILE SEDATION IS OFF. SEDATION HAS BEEN OFF FOR 30MINS. NO BABINSKI REFLEX, CORNEAL REFLEX NOTED, SLIGHT SWALLOWING REFLEX NOTED BUT NOT GAG REFLEX NOTED. PT IS FLACCID. NO PURPOSEFUL MOVEMENT NOTED. 828-RESTARTED PROPOFOL DRIP AT THIS TIME @ 10MCG/KG/MIN. CHANGED TUBE FEEDING BOTTLE AND TUBINGS.
--- NOTE | 2018-10-26 08:31 | NUR ---
INITIAL ASSESSMENT: 0700-ASSUMED CARE OF PT. PT IS SEDATED WITH PROPOFOL @ 10MCG/KG/MIN. PT IS AFEBRILE. 729-TURNED OFF PROPOFOL AT THIS TIME FOR SEDATION VACATION. 08-PT SEEN BY DR. LEWIS. INFORMED HIM THAT PT'S HAD EPISODES OF BRADYCARDIA AFTER BOUTS OF COUGHING TO LOW MID 30s. PUPILS ARE REACTIVE TO LIGHT BUT ANISOCORIC. LEFT PUPIL IS SLIGHTLY BIGGER THAN RIGHT. R PUPIL ABOUT 3.5 LEFT PUPIL ABOUT A 4MM DILATION. LEFT PUPIL GAZES TO THE RIGT WHILE RIGHT PUPIL IS GAZING STRAIGHT FORWARD. NO SEIZURE ACTIVITY NOTED WHILE SEDATION IS OFF. SEDATION HAS BEEN OFF FOR 30MINS. NO BABINSKI REFLEX, CORNEAL REFLEX NOTED, SLIGHT SWALLOWING REFLEX NOTED BUT NOT GAG REFLEX NOTED. PT IS FLACCID. NO PURPOSEFUL MOVEMENT NOTED. 828-RESTARTED PROPOFOL DRIP AT THIS TIME @ 10MCG/KG/MIN. CHANGED TUBE FEEDING BOTTLE AND TUBINGS.
--- NOTE | 2018-10-26 08:43 | NUR ---
DR. LEWIS IS AWARE OF THE COPIOUS AMOUNT OF ORAL SECRETIONS WITHIN THE 24HOUR TIME PERIOD.
--- NOTE | 2018-10-26 09:55 | NUR ---
899-TOOK PATIENT TO RADIOLOGY FOR HEAD CT. 929-PT BACK IN THE ROOM. [facility]. UPDATED HIM OF PT'S STATUS. 954-DR. AMBRIZ AT BEDSIDE. UPDATED HER OF PT'S STATUS. SHE TALKED TO PT'S UNCLE REGARDING PT'S PROGNOSIS.
--- NOTE | 2018-10-26 11:11 | NUR ---
1048-DR. CASTANEDA AT BEDSIDE. EVALUATING PATIENT. UPDATED HIM OF PT'S STATUS.
--- NOTE | 2018-10-26 14:04 | NUR ---
DR. LEWIS WAS NOTIFIED REGARDING PT'S BLOOD PRESSURE IN THE 70s. CURRENT BLOOD PRESSURE IS 73/59. ORDERS RECEIVED
[2018-10-26 15:00] LABS: Dilantin (Phenytoin), Total 16.5 ug/mL (10.0-20.0)
--- NOTE | 2018-10-26 15:04 | NUR ---
BP CURRENTLY 75/55 DESPITE 1 LITER OF LR BOLUS. DR. LEWIS WAS NOTIFIED. ORDERS RECEIVED.
--- NOTE | 2018-10-26 16:33 | NUR ---
PT HAD AN EPISODE OF BRADYCARDIA AGAIN TO LOW 40 BEATS PER MINUTE. PT'S FATHER GRETCHEN CALLED. UPDATED HIM OF PT'S CONDITION.
[2018-10-26 16:40] LABS: Hematocrit 35.9 % (33.0-51.0); Hemoglobin 11.8 g/dL (11.5-16.0)
[2018-10-26 17:08] LABS: Anion Gap 6 mmol/L (6-16); Blood Urea Nitrogen 6 mg/dL (8-24); CO2, Blood 27 mmol/L (21-32); Calcium, Blood 7.3 mg/dL (8.5-10.1); Chloride, Blood 111 mmol/L (98-108); Creatinine, Blood 0.46 mg/dL (0.40-1.00); Glomerular Filtration Rate >60 (60-); Glucose, Blood 148 mg/dL (70-99); Magnesium, Blood 2.1 mg/dL (1.6-2.4); Phosphorus, Blood 3.5 mg/dL (2.5-4.9); Potassium, Blood 3.6 mmol/L (3.5-5.5); Sodium, Blood 144 mmol/L (136-145)
--- NOTE | 2018-10-26 17:31 | NUR ---
DR. LEWIS WAS CALLED REGARDING PT'S LAB RESULTS. INFORMED HIM OF PT'S EPISODE OF BRADYCARDIA. INFORMED HER OF PT'S LEVOPHED RATE @ 10MCG/KG/MIN. ORDERS RECEIVED.
--- NOTE | 2018-10-26 17:32 | NUR ---
SHIFT SUMMARY: PT IS STILL INTUBATED AND SEDATED WITH PROPOFOL AT 10MCG/KG/MIN. AFEBRILE. PT'S NEUROLOGICAL STATUS HAS NOT CHANGED FROM THIS NOON'S ASSESSMENT. PT RECEIVED 2 DOSES OF ATIVAN 2MG IV PRN FOR SEIZURES. BRADYCARDIA EPISODE NOTED @ 1630. DR. LEWIS AWARE. WILL START DOPAMINE FOR HR.
--- NOTE | 2018-10-26 17:55 | NUR ---
REPORT GIVEN TO LONNIE CARROLL
--- NOTE | 2018-10-26 18:38 | NUR ---
REPORT TAKEN AT 1800. DOPAMINE GTT STARTED AT 5MCG TO KEEP HR ABOVE [address] LEWIS.
--- NOTE | 2018-10-26 19:00 | NUR ---
ASSUMED CARE OF PT PT INTUBATED AND SEDATED. VENT SETTINGS AC 16/350/25/5, PROPOFOL AT 10 MCG/KG/MIN. PT IS UNRESPONSIVE TO VERBAL OR PAINFUL STIMULI. PUPILS ARE LARGE WITH SLUGGISH REACTION. PT EXHIBITS DECEREBRATE POSTURING WHEN COUGHING. COPIOUS AMOUNTS OF CLEAR ORAL SECRETIONS NOTED. TF RUNNING AT GOAL RATE OF 30 MLS/HR WITH LOW RESIDUALS. TEMP HARRIS IN PLACE AND DRAINING CLEAR YELLOW URINE. LEVOPHED RUNNING AT 10 MCG/MIN, DOPAMINE 5 MCG/KG/MIN. PT'S UNCLE AND BROTHER AT BEDSIDE. EXPLAINED PLAN FOR EEG TOMORROW MORNING, WELL CURRENT MEDICATIONS AND USES. SEE FULL SHIFT ASSESSMENT.
--- NOTE | 2018-10-26 20:00 | NUR ---
PT'S UNCLE JESSICA AND BROTHER FARREL AT BEDSIDE INQUIRING ABOUT PLAN OF CARE, MEDICATIONS, PROGRESS, AND UPCOMING TESTING. PT'S UNCLE AND BROTHER DISCUSSED THAT PT WOULD "NOT WANT TO LIVE ON LIFE SUPPORT" AND "WOULDN'T EVEN WANT TO BE RESUSCITATED OR HAVE THE MACHINE IN THE ROOM IN THIS CONDIION". PT'S UNCLE AND BROTHER STATED THAT THEY WILL BE BACK IN THE [place] TO REVIEW FINDINGS OF EEG AND TALK TO THE DOCTOR.
--- NOTE | 2018-10-26 23:55 | NUR ---
PT'S MOTHER JUST ARRIVED FROM [place]. PT'S MOTHER (MARLENE) STATES THAT PT HAS LIVED WITH PATERNAL UNCLE JESSICA FOR "A VERY LONG TIME". THE FAMILY IS DIVIDED OVER PT'S CONDITION. MOTHER STATES THAT SHE AND "HER SIDE OF THE FAMILY ARE PRAYING" AND THAT ACCORDING TO HER PRAYERS "THINGS ARE LOOKING GOOD". DISCUSSED THE CLINICAL FINDINGS INCLUDING POSTURING, PUPILLARY RESPONSE, SEIZURE ACTIVITY, AND QUALITY OF LIFE. PT'S MOTHER STATED THAT SHE "CARED FOR THE HANDICAPPED FOR 10 YEARS" AND THAT IF I DISCUSSED "QUALITY OF LIFE" THAT I WAS "LIKE HITLER AND THE JEWS AND GENOCIDE". I ENDED THE DISCUSSION AT THAT POINT. MOTHER, MARLENE STARTED NAMING FAMILY MEMBER THAT ARE ON "HER SIDE" AND SUPPORT LIFE LONG LIFE SUPPORT. PT'S MOTHER EXPRESSED FRUSTRATION THAT HER DAUGHTER WAS NOT MADE TO FILL OUT A POLST AT ANY POINT IN HER LIFE. WILL PUT IN ETHICS CONSULT.
--- NOTE | 2018-10-27 00:23 | NUR ---
ETHICS REFERRAL INITIATED
[2018-10-27 04:08] LABS: PO2 Arterial 72.5 mmHg (80-100); pH Blood Arterial 7.48 (7.35-7.45)
[2018-10-27 04:34] LABS: BASOPHILS ABSOLUTE AUTO 0.05 K/mm3 (0.00-0.23); BASOPHILS PERCENT AUTO 1 % (0-2); EOSINOPHILS ABSOLUTE AUTO 0.35 K/mm3 (0.00-0.68); EOSINOPHILS PERCENT AUTO 4 % (0-6); Hematocrit 37.7 % (33.0-51.0); Hemoglobin 12.5 g/dL (11.5-16.0); IMMATURE GRAN ABSOLUTE AUTO 0.03 K/mm3 (0.00-0.10); IMMATURE GRAN PERCENT AUTO 0 % (0-1); LYMPHOCYTES ABSOLUTE AUTO 2.61 K/mm3 (0.84-5.20); LYMPHOCYTES PERCENT AUTO 30 % (21-46); MONOCYTES PERCENT AUTO 10 % (4-13); Mean Corpuscular HGB 33.5 pg (26.0-34.0); Mean Corpuscular HGB Conc 33.2 g/dL (31.5-36.5); Mean Corpuscular Volume 101 fL (80-100); Mean Platelet Volume 12.1 fL (9.1-12.4); NEUTROPHILS ABSOLUTE AUTO 4.87 K/mm3 (1.96-9.15); NEUTROPHILS PERCENT AUTO 55 % (41-73); Platelet Count 121 K/mm3 (150-400); RDW Coefficient Variation 14.3 % (11.7-14.2); RDW Standard Deviation 53.5 fL (35.1-46.3); Red Blood Cell Count 3.73 M/mm3 (3.80-5.20); White Blood Cell Count 8.81 K/mm3 (4.00-11.30)
[2018-10-27 04:49] LABS: Alanine Aminotransfer (ALT/SGP 25 U/L (12-78); Albumin, Blood 2.1 g/dL (3.4-5.0); Albumin/Globulin Ratio 0.7 (0.8-1.8); Alk Phos 81 U/L (50-136); Anion Gap 7 mmol/L (6-16); Aspartate Aminotrans (AST/SGOT 38 U/L (12-37); Bilirubin, Total 0.6 mg/dL (0.1-1.0); Blood Urea Nitrogen 6 mg/dL (8-24); Bun/Creatinine Ratio 13.2 (12.0-20.0); CO2, Blood 30 mmol/L (21-32); Calcium, Blood 7.7 mg/dL (8.5-10.1); Chloride, Blood 109 mmol/L (98-108); Creatinine, Blood 0.46 mg/dL (0.40-1.00); Globulin, Blood 3.2 g/dL (2.2-4.0); Glomerular Filtration Rate >60 (60-); Glucose, Blood 112 mg/dL (70-99); Magnesium, Blood 1.9 mg/dL (1.6-2.4); Phosphorus, Blood 3.5 mg/dL (2.5-4.9); Potassium, Blood 3.1 mmol/L (3.5-5.5); Sodium, Blood 146 mmol/L (136-145); Total Protein, Blood 5.3 g/dL (6.4-8.2)
--- NOTE | 2018-10-27 06:09 | NUR ---
SHIFT SUMMARY PT CONTINUES TO BE INTUBATED WITH VENT SETTINGS AC 16/350/5/25%. PROPOFOL PLACED ON STANDBY AT 0400 DUE TO SCHEDULED EEG. DOPAMINE CURRENTLY AT 4 MCG/KG/MIN AND LEVOPHED AT 4 MCG/MIN. PT EXPERIENCED 3 SEIZURES THAT WERE TREATED WITH 2 MG ATIVAN. LEVOPHED AND DOPAMINE HAD TO BE TITRATED THROUGHOUT SHIFT DUE TO PT'S UNSTABLE VITAL SIGNS (PLEASE SEE FLOWSHEET). PT CONTINUES TO BE UNRESPONSIVE TO COMMANDS AND MINIMALLY RESPONSIVE TO PAINFUL STIMULI. DECORTICATE POSTURING NOTED ON MANY OCCASIONS. PT TOLERATES MINIMAL REPOSITIONING. WITH BIG TURNS PT BECOMES BRADYCARDIC AND SEIZES. TMAX OF 101.3 THAT WAS QUICKLY REDUCED BY REMOVING BLANKETS AND USING A FAN. PT CONTINUES TO HAVE COPIOUS AMOUNTS OF THICK CLEAR ORAL SECRETIONS DESPITE SCOLPAMINE PATCH. PT HAD 1 LOOSE BROWN/YELLOW STOOL. PT TOLERATING TF WELL WITH 40-70 ML RESIDUALS REINSTILLED. TEMP HARRIS PATENT AND DRAINING. 4200 ML OF PALE YELLOW URINE THROUGHOUT THIS SHIFT. PT'S MOTHER CONTINUES TO BE AT BEDSIDE. WILL REPORT TO DAYSNJFT NURSE.
--- NOTE | 2018-10-27 08:00 | NUR ---
ASSUMED CARE: REPORT RECEIVED FROM BARRERA Rodrigez RN. ASSUMED CARE OF THIS PT AT APPROX 0700. ON ASSESSMENT, SHE IS UNRESPONSIVE TO ALL STIMULI & IS NOT ABLE TO FOLLOW COMMANDS. PUPILS ARE ROUND/REACTIVE, UNEQUAL IN SIZE, SLUGGISH RESPONSE. VENT SETTINGS: AC 16, TV 350, PEEP 5, FiO2 25%. PT's MOTHER IS RESTING AT BEDSIDE, SHE HAS QUESTIONS REGARDING SOAKER MEAT BUT IS PLEASANT AT THIS TIME. WILL CONTINUE TO MONITOR & UPDATE NEEDED.
--- NOTE | 2018-10-27 09:22 | NUR ---
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 SHE HAS BEEN UPDATED ON THIS & REQUESTS TO BE NOTIFIED IF FURTHER CHANGES. WILL CONTINUE TO MONITOR & UPDATE NEEDED.
--- NOTE | 2018-10-27 10:38 | NUR ---
Case details reviewed and discussed with palliative care team in response to ethics consult order. Concern was expressed that the family unit is suspected to be in disharmony over the principals direction of care. It was determined in the case conference that the next logical step would be for Heidy Huertas, Palliative Care RN to ascertain from the patients mother or uncle whether the principal has accessible adult children for proxy medical decision making. In the absence of this option consensus bulding will be attempted with the mother and uncle on the goals of care / treatment. Ultimately [facility] statutory algorithm requires that in cases of incapacitation, in the absence of an advance care planning document or formally assigned guardian, the principals health care international representative shall be the first of the following, who can be so located upon reasonable effort; (1) the principals spouse; (2) the majority of the adult children; (3) Either parent of the principal; (4) a majority of the adult siblings; (5) any adult relative or friend. There are other legally appropriate measures that can be taken, but they are not applicable to this case given the current family involvement. Heidy has agreed to keep me apprised of any further questions or conflicts that might benefit from the advisory support of this ethicist or the larger bioethics committee. Thank you for this consult. Scar Talavera DMin
--- NOTE | 2018-10-27 15:25 | NUR ---
UPDATE / EEG: PT CONTINUES RESTING QUIETLY & HAS HAD ONLY MINIMAL SEIZURE ACTIVITY SO FAR THIS SHIFT. BROTHER, RANDEE, & UNCLE, JESSICA, HAVE REMAINED AT BEDSIDE FOR MOST OF THE DAY & ARE SUPPORTIVE & OPTOMISTIC W/ CARE. EEG COMPLETE. PER DR. CASTANEDA REQUEST, THIS RN ATTEMPTED TO ILLICIT TWITCHING, OR SEIZURE ACTIVITY, DURING EEG. THIS WAS MOSTLY UNSUCCESSFUL W/ ONLY SMALL AMNTS OF TWITCHING TO THE UPPER EXTREMITIES NOTED. WILL CONTINUE TO MONITOR & UPDATE NEEDED.
--- NOTE | 2018-10-27 17:38 | NUR ---
SHIFT SUMMARY: PT REMAINS SEDATED/INTUBATED. UNRESPONSIVE TO PAINFUL STIMULI, PT EXPERIENCING SEIZURES ONE TIME THIS SHIFT. POSTURES W/ REPOSITIONING & ORAL CARE. LS DIM T/O, VENT SETTINGS: AC 16, TV 350, PEEP 5, FiO2 25%. MONITOR SHOWS SR-ST W/ HR LABILE 80-130s. HYPOACTIVE BT x4, PT ANTONIO TF WELL W/ LOW RESIDUALS. PIVOT 1.5 INFUSING AT GOAL OF 30 ML/HR. TEMP HARRIS PATENT/DRAINING W/ 5000 ML PALE YELLOW URINE OUT THIS SHIFT. PT HAVING MORE EDEMA TO DEPENDENT PARTS OF BODY INCLUDING HANDS & FACE. EEG COMPLETE, NOT RESULTED YET. WILL CONTINUE TO MONITOR & REPORT OFF TO ONCOMING RN.
--- NOTE | 2018-10-27 18:24 | NUR ---
Numerous encounters with several family members throughout the day. Pt's mom, Shirin, is hyper-catholic and beleives pt is getting better. Shirin beleicammy God is healing pt. Shirin expressed numerous concerns that other family members were plotting to end pt's life. There was a great deal of confusion regarding who had the power of decision-making. Pt has a dtr in [facility], Desire. According to pt's uncle and brother, Desire is emotionally fragile and "can't handle this." Advised family that no one is asking for decision at this point, and as it stands now, we are doing everything we can to give Andree every chance at healing. This appeared to calm Shirin's concerns at this time. I will remain available to this family.
--- NOTE | 2018-10-27 18:31 | NUR ---
DR CASTANEDA IN TO ASSESS PT AND UPDATE FAMILY. PROPOFOL PLACED ON STANDBY DR CASTANEDA SPOKE WITH PT'S UNCLE (JESSICA) AND BROTHER (RANDEE). DR CASTANEDA ASKED IF THE PT'S MOTHER AND PT'S DAUGHTER, (WHOM WILL MAKE PT'S DECISIONS) COULD OR WOULD LIKE TO BE AT THE BEDSIDE, WHICH WAS DECLINED, PT'S MOTHER REPORTS SHE DOES NOT WANT TO KNOW ANYTHING ABOUT THE MEDICAL SIDE OF THE PT'S CONDITION (IE: POOR PROGNOSIS), AND PT'S DAUGHTER CAN BE DIFFICULT TO GET A HOLD OF AND WORKS A EVENING JOB. DR CASTANEDA VERY CLEARLY STATED THE PT'S SIGNS AND TEST RESULTS THAT SHOW HER IMPORT EXPORT CLERK PROGNOSIS WILL MOST LIKELY BE VERY POOR. JESSICA AND RICHA REPORT UNDERSTANDING OF WHAT DR CASTANEDA WAS TELLING THEM.
--- NOTE | 2018-10-27 19:50 | NUR ---
ASSESSMENT PT INTUBATED AND ON [facility] VENT. VENT SETTINGS AC 16 TV 350 PEEP 5 FIO2 25%. LUNGS CLEAR BUT DECREASED IN THE BASES. RETAPED ET TUBE WITH RT. ET TUBE 21 AT TEETH. LARGE AMT CLEAR ORAL SECRECTIONS. HEART RATE REGULAR. BP STABLE ON LEVOPHED AT 4 MCQ/MIN AND DOPAMINE AT 4 MCQ/MIN. EDEMA NOTED TO FACE AND EXT. BT+ ABD SOFT. OG WITH TUBE FEED PIVOT 1.5 AT GOAL RATE OF 30 ML/HR WITH WATER 200 ML Q4HRS. RESIDUAL ZERO. PICC LINE TO RIGHT UPPER ARM DRSG INTACT. POWER GLIDE TO LEFT UPPER ARM DRSG INTACT. HARRIS CATH PATENT DRAINING CLEAR YELLOW URINE. PT REPOSITIONED AND ORAL CARE DONE.
--- NOTE | 2018-10-27 23:54 | NUR ---
REASSESSMENT PT CONT INTUBATED AND ON [facility] VENT. PT NONRESPONSIVE TO PAINFUL STIMULI. LUNGS CLEAR. NO VENT CHANGES. SUCTIONED SMALL AMT VIA ET TUBE. LARGE AMT ORAL SECRECTIONS CLEAR NOTED. HEART RATE DOWN TO 90'S WITH DOPAMINE OFF. LEVOPHED CURRENTLY AT 6 MCQ/MIN. OG WITH TUBE FEED AT GOAL, NO RESUDUAL. PT REPOSITIONED TO BACK WITH HOB UP. ORAL CARE DONE. RT GIVING UDN TX.
[2018-10-28 03:46] LABS: BASOPHILS ABSOLUTE AUTO 0.06 K/mm3 (0.00-0.23); BASOPHILS PERCENT AUTO 1 % (0-2); EOSINOPHILS ABSOLUTE AUTO 0.34 K/mm3 (0.00-0.68); EOSINOPHILS PERCENT AUTO 3 % (0-6); Hematocrit 36.1 % (33.0-51.0); Hemoglobin 11.8 g/dL (11.5-16.0); IMMATURE GRAN ABSOLUTE AUTO 0.03 K/mm3 (0.00-0.10); IMMATURE GRAN PERCENT AUTO 0 % (0-1); LYMPHOCYTES ABSOLUTE AUTO 2.24 K/mm3 (0.84-5.20); LYMPHOCYTES PERCENT AUTO 21 % (21-46); MONOCYTES ABSOLUTE AUTO 1.15 K/mm3 (0.16-1.47); MONOCYTES PERCENT AUTO 11 % (4-13); Mean Corpuscular HGB 33.1 pg (26.0-34.0); Mean Corpuscular HGB Conc 32.7 g/dL (31.5-36.5); Mean Corpuscular Volume 101 fL (80-100); NEUTROPHILS ABSOLUTE AUTO 7.11 K/mm3 (1.96-9.15); NEUTROPHILS PERCENT AUTO 65 % (41-73); RDW Coefficient Variation 14.3 % (11.7-14.2); RDW Standard Deviation 54.1 fL (35.1-46.3); Red Blood Cell Count 3.56 M/mm3 (3.80-5.20); White Blood Cell Count 10.93 K/mm3 (4.00-11.30)
[2018-10-28 03:51] LABS: Mean Platelet Volume 10.9 fL (9.1-12.4); Platelet Count 121 K/mm3 (150-400)
[2018-10-28 04:03] LABS: Alanine Aminotransfer (ALT/SGP 23 U/L (12-78); Albumin, Blood 2.1 g/dL (3.4-5.0); Albumin/Globulin Ratio 0.7 (0.8-1.8); Alk Phos 78 U/L (50-136); Anion Gap 8 mmol/L (6-16); Aspartate Aminotrans (AST/SGOT 25 U/L (12-37); Bilirubin, Total 0.2 mg/dL (0.1-1.0); Blood Urea Nitrogen 6 mg/dL (8-24); Bun/Creatinine Ratio 12.6 (12.0-20.0); CO2, Blood 29 mmol/L (21-32); Calcium, Blood 7.7 mg/dL (8.5-10.1); Chloride, Blood 110 mmol/L (98-108); Creatinine, Blood 0.48 mg/dL (0.40-1.00); Globulin, Blood 3.2 g/dL (2.2-4.0); Glomerular Filtration Rate >60 (60-); Glucose, Blood 125 mg/dL (70-99); Potassium, Blood 2.8 mmol/L (3.5-5.5); Sodium, Blood 147 mmol/L (136-145); Total Protein, Blood 5.3 g/dL (6.4-8.2)
--- NOTE | 2018-10-28 04:09 | NUR ---
REASSESSMENT PT CONT INTUBATED AND ON [facility] VENT. NO VENT CHANGES. PT NONRESPONSIVE. INCONT LIQUID BROWN STOOL. FLEXI SEAL PLACED. BELEM CARE AND LINEN CHANGE DONE. CXR DONE. LUNGS CONT CLEAR. PT REPOSITIONED AND ORAL CARE DONE. NO RESIDUALS. SUCTIONED LARGE AMT CLEAR SECRECTIONS VIA ET TUBE AND ORALLY.
[2018-10-28 05:11] LABS: PCO2 Arterial 40.4 mmHg (35-45); PO2 Arterial 64.5 mmHg (80-100)
--- NOTE | 2018-10-28 05:56 | NUR ---
LABS CALL TO DR HERNANDEZ REGARDING POTASSIUM OF 2.8, RECEIVED ORDER FOR KCL 60 MEQ IV.
--- NOTE | 2018-10-28 06:05 | NUR ---
SHIFT SUMMARY PT CONT INTUBATED AND ON [facility] VENT. VENT SETTINGS AC 16 TV 350 PEEP 5 FIO2 25%. LARGE AMT ORAL SERECTIONS AND MODERATE AMT OF SECRECTIONS VIA ET TUBE. LUNGS CLEAR. HEART RATE STABLE IN THE 80-90'S. DOPAMINE STOPPED DURING THE NIGHT DUE TO HEART RATE UP TO 110-120'S. INCREASED LEVOPHED FROM 4 MCQ/MIN TO 6 MCQ/MIN TO KEEP MAP ABOVE 60. POSTURING NOTED WITH COUGHING. GRIMACING NOTED WHEN ABG DRAWN THIS AM. NO OTHER RESPONSE NOTED THROUGHOUT THE NIGHT. FLEXI SEAL PLACED DUE TO LIQUID STOOLS. DR HERNANDEZ NOTIFIED WITH LOW POSTASSIUM THIS MORNING, AWAITING KCL IV. REPORT TO ON COMING NURSE
--- NOTE | 2018-10-28 08:00 | NUR ---
INITIAL ASSESSMENT PATIENT LYING IN BED QUIETLY. PATIENT INTUBATED AND SEDATED. PATIENT UNRESPONSIVE. PATIENT HAS POSITIVE COUGH AND GAG REFLEX BUT NO SWALLOW REFLEX NOTED. PATIENT ONLY OPENS EYES WHEN BREATHING IN, EYES CLOSE WHEN BREATHING OUT. PUPILS REACT SLUGGISHLY. POSITIVE DOLLS EYES NOTED. DECORTICATE POSTURING NOTED WITH COUGHING. PATIENT DOES GRIMACE WITH ORAL CARE. NO SIGNS OF PAIN NOTED WHEN PATIENT IS NOT BEING STIMULATED BY NURSING CARE. PATIENT HAS CORE TEMP OF 99.1 DEGREES FAHRENHEIT. PATIENT SATTING WELL ON AC 16, TV 350, PEEP 5, AND 25% FIO2. AFTER SUCTIONING, UPPER LOBES CLEAR TO AUSCULTATION AND LOWER LOBES SLIGHTLY DIMINISHED. PATIENT HAS HARSH COUGH. LARGE AMOUNTS OF CLEAR, STRINGY SPUTUM BEING SUCTIONED FROM ETT. PATIENT HAS COPIOUS AMOUNT OF ORAL SECRETIONS THAT REQUIRES FREQUENT SUCTIONING. PATIENT IN SR TO ST, HR 90S TO LOW 100S. BP STABLE ON LEVOPHED. PULSES STRONG. SCDS IN PLACE. ABDOMEN SOFT, NONTENDER, WITH NORMOACTIVE BS. PIVOT 1.5 INFUSING AT GOAL RATE OF 30 MLS/ HOUR WITH 200 ML WATER FLUSH Q4H. RESIDUAL OF 190 MLS OBTAINED AND REINSTILLED. RECTAL TUBE INSERTED DURING NIGHT- DRAINING BROWN, LIQUID STOOL. TEMP PROBE HARRIS DRAINING ADEQUATE AMOUNTS OF CLEAR/ YELLOW URINE. BELEM-ORBITAL AND GENERALIZED TRACE EDEMA NOTED. PATIENT HAS SOME TONGUE LACERATIONS NOTED. SMALL REDDENED/ RASHY AREAS NOTED ON LEGS AND TORSO. SKIN PALE. LR INFUSING AT 75 MLS/ HOUR. NS TKO. PROPOFOL INFUSING AT 30 MCG/ KG/ MINUTE, DOPAMINE OFF, LEVOPHED INFUSING AT 6 MCG/ MINUTE, KCL INFUSING FOR LOW POTASSIUM OF 2.8 THIS AM. BED LOW. WILL CONTINUE TO MONITOR PATIENT FREQUENTLY THROUGHOUT SHIFT.
--- NOTE | 2018-10-28 08:54 | NUR ---
DR. KNOX IN TO SEE PATIENT.
--- NOTE | 2018-10-28 09:36 | NUR ---
DONOR LINE CALLED TO GET UPDATE ON PATIENT.
--- NOTE | 2018-10-28 10:40 | NUR ---
PATIENT'S UNCLE JESSICA IN ROOM TO SEE PATIENT. JESSICA STATED TO NURSE UPON ENTERING UNIT THAT THEY BELIEVE THEY WILL WITHDRAW CARE ON PATIENT TODAY. HE STATED THAT HE HAS SPOKE TO THE PATIENT'S DAUGHTER TODAY ON THE PHONE. JESSICA ENTERED ROOM. PATIENT CHEWING ON BITE BLOCK, MOVING HEAD SLIGHTLY BACK AND FORTH AND GRIMACING. UNCLE STATED THAT EVERYTHING IS WAS SEEING IS NEW AND THAT HE IS NOT SURE ABOUT WITHDRAWING CARE ON PATIENT TODAY. PRIMARY NURSE INFORMED JESSICA THAT THERE WAS NO MENDOZA TO MAKE ANY DECISIONS. UNCLE INFORMED THAT PATIENT WOULD BE GIVEN PAIN MEDICATIONS FOR SIGNS OF PAIN- RESTLESSNESS AND GRIMACING. UNCLE THEN LEFT STATED HE HAS AN APPOINTMENT IN [place] TODAY.
--- NOTE | 2018-10-28 11:27 | NUR ---
DR. SMITH IN ROOM TO SEE PATIENT.
--- NOTE | 2018-10-28 12:00 | NUR ---
PATIENT PLACED ON SEDATION VACATION AT 1127. DR. SMITH IN ROOM AND CHANGED VENT SETTINGS FROM AC TO SPONTANEOUS PS 5/5, 35%. DR. SMITH STATED THAT IF PATIENT TOLERATES THEN TO SWITCH PATIENT BACK TO AC SETTINGS AT 1500 AND THAT WE WILL THEN DO PS STARTING AGAIN THE NEXT MORNING. PATIENT HAS TEMP OF 99.9 DEGREES FAHRENHEIT. OFF SEDATION, PATIENT IS OPENING AND CLOSING EYES BUT DOES NOT APPEAR TO BE DOING ANYTHING PURPOSEFUL. PATIENT IS NOT TRACKING AT ALL. PATIENT IS NOT REACTING TO ANY PAINFUL STIMULI. PATIENT CONTINUES TO POSTURE WITH COUGHING. PATIENT APPEARS LESS RESTLESS AND NOT GRIMACING MUCH NOW THAT SHE IS OFF SEDATION. PATIENT IN SR TO ST, HR 90S TO LOW 1OOS. BP STABLE. LEVOPHED DECREASED TO 1 MCG/ MINUTE. TF RESIDUAL OF 70 MLS OBTAINED AND REINSTILLED. NO OTHER ACUTE CHANGES TO NOTE ON AT THIS TIME. WILL CONTINUE TO MONITOR.
--- NOTE | 2018-10-28 12:18 | NUR ---
PATIENT'S BROTHER IS HERE SEEING PATIENT. INFORMED DR. SMITH AND PASTORAL CARE NURSE, JUSTINA FONSECA.
--- NOTE | 2018-10-28 12:32 | NUR ---
PASTORAL CARE SPEAKING WITH PATIENT'S BROTHER AT THIS TIME.
--- NOTE | 2018-10-28 12:40 | NUR ---
DR. SMITH AND PASTORAL CARE SPEAKING TO PATIENT'S BROTHER IN SEPARATE ROOM.
--- NOTE | 2018-10-28 16:20 | NUR ---
CHARGE NURSE, SAMANTHA REYNOLDS, AND PRIMARY NURSE IN PATIENT ROOM TO SPEAK TO PATIENT'S DAUGHTER, THUY, ON THE PHONE. PHONE PLACED ON SPEAKER WITH PATIENT'S UNCLE, JESSICA, PATIENT'S BROTHER, RANDEE, AND JESSICA'S AND DAUGHTER IN ROOM. PATIENT'S DAUGHTER, THUY, GRANTED ALL DECISION MAKING REGARDING THE PATIENT TO HER UNCLE, JESSICA, AND TO HER BROTHER, RANDEE. ALL WERE IN AGREEANCE TO MAKE THE PATIENT COMFORT CARE. BOTH NURSES WITNESSED THIS MISSY. 1636: DR. SMITH NOTIFIED OF MISSY OF DECISION MAKING AND FAMILY DECISION OF CHANGING PATIENT TO COMFORT CARE THEY SAY SHE "NEVER WANTED TO EVER BE HOOKED UP TO ANY OF THIS IN THE FIRST PLACE. SHE HAS SUFFERED ENOUGH". DR. SMITH STATED SHE WILL PUT APPROPRIATE ORDERS IN. 1638: TRANSPLANT NOTIFIED OF PATIENT'S CHANGE TO COMFORT CARE AND STATED THEY WILL BE IN TOUCH AGAIN SHORTLY.
--- NOTE | 2018-10-28 17:16 | NUR ---
Met with pt's brother and uncle several times throughout the day. Brother tells me pt's is no longer involved. He has been in contact with pt's dtr and she has passed her decision-making role to her uncles. BrotherEfren is tearful, but calm. Uncle, Maycol is tearful at bedside. Both claim acceptance with path towards comfort care. I provided calm presence and theraputic listening. Affirmed obvious love and devotion. I will continue to be available to this family.
--- NOTE | 2018-10-28 17:50 | NUR ---
PATIENT RESTING QUIETLY IN BED. FAMILY AT BEDSIDE. NO PAIN NOTED AT THIS TIME. FAMILY SPEAKING TO TRANSPLANT TEAM ON THE PHONE AT THIS TIME.
[2018-10-28 18:06] LABS: HSV-1 DNA Negative (Negative); HSV-2 DNA Negative (Negative)
--- NOTE | 2018-10-28 18:21 | NUR ---
TRANSPLANT TEAM CALLED PRIMARY NURSE BACK. ABLE TO EXTUBATE AND CONTINUE COMFORT MEASURES AT THIS TIME. CHARGE NURSE, OPHELIA WAYNE.
--- NOTE | 2018-10-28 18:24 | NUR ---
JUSTINA FONSECA, WITH PASTORAL CARE, IN SPEAKING WITH FAMILY AT THIS TIME.
--- NOTE | 2018-10-28 18:37 | NUR ---
SHIFT SUMMARY PATIENT REMAINED INTUBATED. PATIENT PLACED ON SPONTANEOUS VENT SETTINGS THIS AM AND HAS SATTED WELL ALL DAY. LEVOPHED HAS BEEN OFF SINCE SEDATION HAS BEEN OFF SINCE AROUND NOON. PATIENT HAS BEEN BLINKING EYES ON AND OFF BUT IS NOT TRACKING OR DISPLAYING ANY SIGNS OF PURPOSEFUL MOVEMENTS. IT WAS DECIDED BY DAUGHTER, THUY, TO MAKE THE PATIENT'S UNCLE AND BROTHER THE HEALTHCARE DECISION MAKERS. THUY, JESSICA, AND RANDEE DECIDED IT WAS THE TIME TO MAKE PATIENT COMFORT CARE. TRANSPLANT TEAM HAS BEEN IN CONTACT WITH NURSE. IT WAS DECIDED BY FAMILY THAT THEY "DID NOT WANT TO MAKE PATIENT SUFFER ANOTHER DAY UNTIL TRANSPLANT TEAM GOT HERE, WHEN SHE WOULDN'T PASS IN THEIR TWO HOUR WINDOW". TRANSPLANT TEAM NOTIFIED NURSE THAT THEY WOULD NOT BE FOLLOWING THE CASE ANYMORE. NURSE INFORMED DR. SMITH AND STEPS WILL NOT BE TAKEN TO WITHDRAW CARE. FAMILY IS IN THE PATIENT ROOM AND IS READY AT THIS TIME.
--- NOTE | 2018-10-28 18:58 | NUR ---
Provided supportive visit and prayer for a peaceful transition with family. They are very appreciative of emotional support and end of life education. I will remain available.
--- NOTE | 2018-10-28 20:05 | NUR ---
EXTUBATION PT EXTUBATED AT 1940, INITIALLY WITH OG LEFT IN PLACE. PT SUCTIONED AND IS BITING DOWN ON SUCTION CATH WELL TONGUE. O2 SATS DROP TO LOW 70'S AND PT'S WOB INCREASES. PT MEDICATED WITH BOTH FENTANYL, MORPHINE AND ATROPINE DROPS. UNCLE, BROTHER AND OTHER FAMIL AT BEDSIDE. ALL IV'S STOPPED. FAMILY THEY REQUESTED OG AND BITE BLOCK BE REMOVED. FAMILY EDUCATED TO CALL WITH ANY NONVERBAL INDICATORS OR INCREASED WOB. MONITOR OFF IN ROOM, DOOR CLOSED AND FAMILY ENCOURAGED TO PLAY PT'S FAVORITE MUSIC.
--- NOTE | 2018-10-29 02:48 | NUR ---
TRANSFER REPORT TO ISMAEL FLEMING. PT MOVING TO ROOM 211. UNCLE TIME MADE AWARE, VERBALIZED CONCERNS THAT NEW ROOM WOULD HAVE ROOM FOR A RECLINER WHNIKHIL WAS RELAYED TO ISMAEL.
--- NOTE | 2018-10-29 03:28 | NUR ---
PT TX TO ROOM 211 FROM ICU 13. PT NONRESPONSIVE DURING TRANSFER, RESP RATE INC. BROTHER ORIENTED TO ROOM. WILL CONT TO MONITOR NAD MED PRN
--- NOTE | 2018-10-29 04:05 | NUR ---
PT MEDICATED FOR PAIN AND AIR HUNGER PER UNCLE REQ. PT RESP RATE NOTED DEC AFTER MEDS GIVEN. WOB REMAINS INCREASED AND LABORED W/RETRACTIONS PRESENT.
--- NOTE | 2018-10-29 05:37 | NUR ---
Pt medicated for pain and air hunger per family req. Pt did have spontanious eye movement-eyes opened, were rolled back in head. Resp tachypneic and labored. Uncle req pt to be med Q1 hr w/fentanyl and morphine updraft. Uncle is becoming more anxious, stating "I just want her to be comfortable, I didn't realize it would take this long" Support and education provided, Uncle enc to call for additional concerns.
--- NOTE | 2018-10-29 06:35 | NUR ---
PT NEW TX FROM ICU THIS SHIFT. PT HAS REMAINED NONRESPONSIVE, DOES HAVE OCC SPONTANEOUS EYE OPENING. BREATHING LABORED, W/INC WOB-RETRACTIONS AND ACCESSORY MUSCLE USE. RESP RATE IS INC, DOES APPEAR TO IMPROVE W/PRN MEDS. PT MEDICATED PER FAMILY REQ. UNCLE IS BECOMING MORE ANXIOUS, SUPPORT AND EDCUATION PROVIDED FREQUENTLY. PT MED FOR AIR HUNGER AND PER FAMILY REQ. WILL CONT TO MONITOR UNTIL REP GIVEN TO ONCOMING RN.
--- NOTE | 2018-10-29 10:10 | NUR ---
THIS INFORMATION MANAGEMENT MANAGER AND PT'S RN IN TO COMPLETE BED BATH AND REPOSITION PT AFTER RN MEDICATED PT FOR COMFORT. REPOSITIONED TOWARD LEFT SIDE, WITH PILLOW TO RIGHT HIP. BLE ELEVATED. BUE ELEVATED. PT'S GOWN, PILLOWCASES AND TOP SHEET CHANGED. BED BATH COMPLETED, WITH LOTION APPLIED AND BELEM/CATH CARE DONE. PT'S BED IS AT LOWEST POSITION AND CALL LIGHT IN NEAR PT. FAMILY AT BEDSIDE.
--- NOTE | 2018-10-29 10:47 | NUR ---
patient lying with eyes closed, jerking of right arm noted. patient does not respond to verbal stimulation or withdraw to nailbed pressure patient with rhonchi throughout. patients uncle at bedside and requests patient be medicated q 1 hour with fentanyl. uncle requests no ativan as tells me it has the opposite effect on patient. patient with generalized edema repositioned and arms and legs elevated on pillows. triple lumen picc present to right upper arm and powerglide to left arm, sites without redness or drainage
--- NOTE | 2018-10-29 10:50 | NUR ---
Patient's power of transactional attorney (uncle) gave permission to provide care.
--- NOTE | 2018-10-29 12:03 | NUR ---
patients uncle tells me that a few minutes ago Andree stopped breathing for 3-4 breaths. patient with regular respirations at this time
--- NOTE | 2018-10-29 15:27 | NUR ---
PATIENT WITH INCREASED JERKING MOVEMENTS OF RIGHT ARM, SNORING RESPIRATIONS RATE OF 32. PATIENT MEDICATED WITH ATIVAN 1MG IV AND REPOSITIONED. NO FAMILY PRESENT AT THIS TIME
--- NOTE | 2018-10-29 18:08 | NUR ---
1500 shauna spoke at length with patients uncle , maycol, regarding medications. after lengthy conversation Maycol is in agreement with giving patient a dose of ativan. patients brother Efren at bedside
--- NOTE | 2018-10-29 18:12 | NUR ---
1615 patient with less jerking of right arm and quieter respirations. patients brother tells me he feels Andree is now sleeping and resting well. patients brother tells me he is in agreement with plan for ativan and roxanol as needed but states "Maycol may not like this plan
--- NOTE | 2018-10-29 18:17 | NUR ---
Spent some time with Andree's uncle, Maycol, at bedside. He was tearful and told me stories about her compassion for others. Provided theraputic listening and comfort. Andree was non-responsive, breaths even. Some jerking movement in upper body, but this did not appear to disturb her at all. Family appreciaitive of emotional support. I will remain available.
--- NOTE | 2018-10-29 19:12 | NUR ---
summary patients brother and uncle present. patients uncle tells me he feels patients breathing is more shallow and she is having pauses in her breathing. zaida tells me patient has been unhappy for a long time and that he feels she will be happier when her life is over. patient with loose cough, oral suctioned and clenches teeth and unable to suction. contacted RT for breathing treatment
--- NOTE | 2018-10-30 08:29 | NUR ---
SHIFT SUMMARY PT ALERT AT TIMES; EYES DO NOT TRACK; NO VERBAL RESPONSE NOTED. OCC COUGH. GAG REFLUX NOTED X1 DURING ORAL CARE. ORAL SUCTION PRN AND ORAL CARE & REPOSITIONED Q2 HR; NO REDNESS TO SKIN NOTED. HARRIS PATENT; RECTAL TUBE PATENT, NO REDNESS OR IRRITATION NOTED TO SKIN AROUND TUBE. SIGNS OF AIR HUNGER/PAIN MANGED PER EMAR. RR HIGH 20-30'S T/O SHIFT. PT UNCLE JESSICA IN ROOM T/O SHIFT; EDUCATION ON ORAL SPONGES YANKER AND RISKS OF INJURY IF ANY ITEM IS FORCED BETWEEN TEETH. REPORT GIVEN TO DAY SHIFT RN.
--- NOTE | 2018-10-30 08:35 | NUR ---
PATIENT IS RESTING QUIETLY W/EYES CLOSED. NO S/SX DISTRESS NOTED. UNCLE SLEEPING ON RECLINER.
--- NOTE | 2018-10-30 10:52 | NUR ---
Pt respirations slightly labored. lip swollen pt grinding teeth , warm to touch. symptoms advancing. family at bedside her uncle is distraught at watching her go slowly he fears suffering gentle review that we cannot hasten only support her process. facilitated some expressions of stress. He has not slept and has never experinced before. physician in to see patient adjust narcotic dose, increase of antivan pt high risk for seizure and review with nursing of rectal tylenol. will increase visits.
--- NOTE | 2018-10-30 11:26 | NUR ---
DR KNOX HERE SEE PATIENT AND TALK WITH FAMILY AT 1040, ALONG WITH PALLIATIVE CARE AND D/C ELECTRICIAN APPRENTICE POWERHOUSE. PATIENT ADM ATIVAN IV AND ROXANOL EARLIER FOR S/SX DISCOMFORT WITH GOOD RESULTS- PAATIENT RESTING QUIETLY AGAIN. MORPHINE HEALTH PROMOTION SPECIALIST IN PLACE, WILL MONITOR FOR EFFECTIVENESS.
--- NOTE | 2018-10-30 11:40 | NUR ---
PATIENT RECEIVING BED BATH AT THIS TIME. BROTHER HERE TO SEE, LEFT ROOM WITH PATIENT'S UNCLE. PATIENT APPEARS IN NO DISTRESS.
--- NOTE | 2018-10-30 12:05 | NUR ---
TWO TRACK WORKER IN TO REPOSITION AND BATHE PT. FULL LINEN CHANGE, GOWN CHANGED. PT REPOSITIONED TOWARDS WINDOW. PILLOWS TO RIGHT SIDE. PT'S BLE/BUE ELEVATED. COMPLETE BED BATH INCLUDING SHAMPOO, AM CARE, ORAL CARE AND F/C CARE. BARRIER CREAM APPLIED TO BUTTOCKS. FRESH COFFEE AND ICE WATER IN ROOM. REQUESTED CHIPS FOR COMFORT CART. PT'S BED IN LOWEST POSITION WITH BED ALARM ON. CALL LIGHT NEARBY.
[2018-10-30 12:16] LABS: Result SEE LABOUT RESULTS
--- NOTE | 2018-10-30 14:19 | NUR ---
Andree's Uncle, Maycol, was at bedside and tearful. He expressed conflicting desires regarding food and nutrition and wanting Andree to pass quickly and peacefully. I suspect, at the core of these requests are; profound grief, emotional/physical exhaustion, and never experiencing the of a loved one before now. Provided theraputic listening, gentle pet adoption counselor, and affirmation. Andree was non-responsive, but appeared "uncomfortable" in Uncle's view. Asked Heidy, palliative care RN, to clinically address family concerns. I will remain available.
--- NOTE | 2018-10-30 14:46 | NUR ---
PATIENT ADM IV ATIVAN AT THIS TIME FOR RESTLESSNESS AND PER FAMILY REQUEST. CONT TO MONITOR.
--- NOTE | 2018-10-30 15:10 | NUR ---
PATIENT REQUESTING QUIETLY AT THIS TIME. FAMILY AT BEDTIME.
--- NOTE | 2018-10-30 18:14 | NUR ---
REPOSITIONED WITH RN. ORAL CARE COMPLETED. BROUGHT IN MORE ORAL SWABS, FAMILY ASSISTING TO MOISTURIZE PT'S MOUTH. BLE/BUE ELEVATED WITH PILLOWS. FAMILY AT BEDSIDE. CALL LIGHT NEARBY, BED IN LOWEST POSITION.
--- NOTE | 2018-10-30 19:00 | NUR ---
DRESSING TO PICC LINE CHANGED USING STERILE TECHNIQUE, TOLERATED WELL. SAFETY MEASURES IN PLACE. WILL CONTINUE TO MONITOR.
--- NOTE | 2018-10-30 19:03 | NUR ---
SHIFT SUMMARY PATIENT KEPT COMFORTABLE WITH MORPHINE MERCURY RECOVERER AND IV ATIVAN. REPOSITIONED AND ORAL CARE T/O SHIFT. RECTAL TUBE CONT WITH BROWN LIQUID OP. FC DRAINING YELLOWE URINE. FAMILY MEMBERS HERE T/O DAY. AWAKE AT TIMES, NON VERBAL. NO ACUTE CHANGES.
--- NOTE | 2018-10-31 10:17 | NUR ---
Two auto former machine operator assist with oral care, bed bath, linen change, and repositioning. Patient appears comfortable after completed tasks.
--- NOTE | 2018-10-31 10:40 | NUR ---
PATIENT ADM 3 DOSES OF IV ATIVAN THUS FAR THIS AM. PATIENT NOW RESTING QUIETLY W/O S/SX DISCOMFORT. CONT TO MONITOR. WILL DISCUSS MORPHINE DOSE W/MD.
--- NOTE | 2018-10-31 11:20 | NUR ---
DR KNOX IN TO SEE. MORPHINE INCREASED TO 3 MG PER HOUR VIA EMBROIDERER HAND. PATIENT CONT TO REST QUIETLY.
--- NOTE | 2018-10-31 13:30 | NUR ---
pt resting no grimace minimal twitching. review of needs am nurse will reenforce need for HS dosing pt rsi for seizure activity so ativan needed for control and comfort.
--- NOTE | 2018-10-31 16:54 | NUR ---
ASSUMING CARE OF PT AT THIS TIME. PT APPEARS TO BE RESTING COMFORTABLY IN BED. OPENS EYES TO VERBAL STIMULI. Peter RN JUST MEDICATED PT WITH IV ATIVAN. PLANNING TO REPOSITION PT SHORTLY. ACCOUNT OFFICER AND IVF INFUSING PER ORDERS. HARRIS WITH DARK YELLOW URINE. RECTAL TUBE IN PLACE. NO FAMILY PRESENT AT THIS TIME. WILL CONT TO MONITOR.
--- NOTE | 2018-10-31 17:00 | NUR ---
REPORT GIVEN TO SERGEY PINEDA RN AT THIS TIME. PATIENT HAS BEEN ADM ATIVAN WITH GOOD RESULTS THIS SHIFT; RESTING QUIETLY W/ NO S/SX OF DISCOMFORT AFTER ADMIN. NO ACUTE CHANGES. RESP E/U. NO VISITORS TODAY YET.
--- NOTE | 2018-10-31 19:42 | NUR ---
PT RESTING IN BED, APPEARS UNCOMFORTABLE AT THIS TIME, TWITCHING, UNRESPONSIVE TO VOICE. WILL MEDICATE WITH PRN ATIVAN FOR COMFORT.
--- NOTE | 2018-10-31 20:57 | NUR ---
PT'S UNCLE AND TWO OTHER FAMILY MEMBERS CAME IN TO VISIT, GAVE THEM AN UPDATE ON PT STATUS, OFFERED SUPPORT, ENCOURAGED THEM TO CALL WITH ANY NEEDS.
--- NOTE | 2018-10-31 22:03 | NUR ---
REPOSITIONED AT THIS TIME, PT APPEARS COMFORTABLE.
--- NOTE | 2018-10-31 23:25 | NUR ---
MEDICATED W/ PRN ATIVAN, PT BIT HER LIP AND CAUSED BLEEDING.
--- NOTE | 2018-11-01 00:59 | NUR ---
PT APPEARS TO BE RESTING COMFORTABLY AT THIS TIME
--- NOTE | 2018-11-01 03:20 | NUR ---
GIVEN ATROPINE DROPS FOR EXCESS SECRETIONS, PT HAD RATTLING IN HER THROAT. REPOSITIONED FOR COMFORT WITH HEAD OF BED MORE ELEVATED.
--- NOTE | 2018-11-01 04:55 | NUR ---
SHIFT SUMMARY PT ON COMFORT CARE FOR ANOXIC BRAIN INJURY R/T OVERDOSE. PT MEDICATED WITH PRN ATIVAN AND ATROPINE FOR COMFORT, CONTINOUS MS LIVESTOCK YARD ATTENDANT RUNNING FOR PAIN MANAGEMENT. PT'S FAMILY VISITED BRIEFLY LAST NIGHT AND WERE UPDATED ON HER STATUS. SHE CONTINUES TO HAVE JERKING AND TWICHING MOVEMENTS. SHE WAS ALMOST ENTIRELY UNRESPONSIVE TO VOICE, HER EYES FLUTTERED WITH TOUCH BUT SHE DID NOT FULLY OPEN HER EYES AT ALL. POSITIONED FOR COMFORT. HARRIS AND RECTAL TUBE IN PLACE. WILL CTM.
--- NOTE | 2018-11-01 07:16 | NUR ---
PT WORK OF BREATHING HAS INCREASED THIS AM PER NOC RN. PT APPEARS TO BE CYANOTIC. MORPHINE RUNNING CONTINUOUSLY. ATROPINE DROPS GIVEN. ATTEMPTED TO SUCTION, PT ATTEMPTED TO BITE SUCTION DEVISE. MOISTERIZED MOUTH USING MOUTH MOISTERIZER. HOB ELEVATED FOR EASE OF BREATHING. WILL CONTINUE TO MONITOR.
--- NOTE | 2018-11-01 07:39 | NUR ---
DR. KNOX NOTIFIED IN INCREASED RR AND EFFORT. BOLUS DOSE OF MORPHINE ORDERED. WILL CONTINUE TO MONITOR.
--- NOTE | 2018-11-01 10:43 | NUR ---
Pt resting in bed and is non responsive. Breathing slightly labored and secretions noted. Offered gentle voice and therpapeutic touch by rubbing Pt's arm and shoulder. Spoke with Pt's nurse Kayce and she expresses concerns about Pt being cyonotic earlier and secretions. She reports that Pt has scapolamine patch and is offering atropine for secretions. Suggested to Kayce to offer bolus of morphine for the labored breathing and recommended offering ativan as well. Kayce is agreeable to plan. Will remain available.
--- NOTE | 2018-11-01 11:51 | NUR ---
PT REPOSITIONED ONTO HER L SIDE. SHE WINCED AND MOANED WITH REPOSITIONING, OTHERWISE PT IS UNRESPONSIVE. PT WAS GIVEN A BOLUS DOSE OF MORPHINE. PT SUCTIONED, TOLERATED WELL. LIP BALM APPLIED. MOUTH MOISTERIZER PLACED ON SPONGE AND APPLIED TO INNER CHEEKS; UNABLE TO APPLY TO TOUNGE SINCE PT ATTEMPTS TO BITE THE SPONGE. WILL CONTINUE TO MONITOR.
--- NOTE | 2018-11-01 17:48 | NUR ---
PT SUCTIONED, SHE WAS ABLE TO COUGH UP SOME THICK CREAM COLORED SPUTUM. MOUTH MOISTENED. WILL CONTINUE TO MONITOR.
--- NOTE | 2018-11-01 17:49 | NUR ---
SHIFT SUMMARY BREATHING HAS REMAINED LABORED AND RR INCREASED THIS SHIFT. PT HAS REQUIRED FREQUENT SUCTIONING. SHE REMAINS UNRESPONSIVE BUT WINCES AND MOANS AT TIMES RELATED TO CARE. MATTRESS AND FOUNDATION SEWER IN PLACE AND FUNCTIONING. PT HAS BEEN GIVEN ADDITIONAL DOSES OF MORPHINE FOR AIR HUNGER. ATROPINE DROPS GIVEN TO MANAGE SECREATIONS, SECREATIONS HAVE DECREASED T/O THE SHIFT. PT CONTINUES TO HAVE SOME TWITCHING TO HER RIGHT UPPER ARM. WILL MONITOR UNTIL REPORT TO ONCOMING RN.
--- NOTE | 2018-11-01 19:41 | NUR ---
PT CONTINUES ON COMFORT CARE. SHE HAS BEEN POSITIONED FOR COMFORT AND APPEARS TO BE RESTING PEACEFULLY. THERE ARE SOME SECRETIONS PRESENT, ATROPINE TO TREAT, SCOPE PATCH IN PLACE BEHIND LEFT EAR. PT IS ALSO WARM TO TOUCH, FAN IN PLACE, COOL WASHCLOTH TO FOREHEAD. SHE CONTINUES TO HAVE MUSCLE TWITCHING, ESPECIALLY IN THE RUE. DECORTICATE POSTURING REMAINS. HER PUPILS ARE NOT RESPONSIVE TO LIGHT. SHE DID STILL EXHIBIT A COUGH REFLEX TODAY DURING DAYSHIFT AND BITES THE SUCTION WHEN ORAL SUCTIONING IS ATTEMPTED. HER BREATHING IS NOT CURRENTLY LABORED. CONTINUOUS MS SADDLE CUTTER IN PLACE. WILL CTM.
--- NOTE | 2018-11-01 21:27 | NUR ---
ORAL SUCTIONING AT THIS TIME. REPOSITIONED. PT RESTING COMFORTABLY.
--- NOTE | 2018-11-01 22:59 | NUR ---
PT CONTINUES TO HAVE MOIST BREATH SOUNDS. ELEVTAED THE HEAD OF BED AND ADJUSTED THE PT, ATIVAN FOR AIR HUNGER AND EASE OF BREATHING.
--- NOTE | 2018-11-02 00:59 | NUR ---
REPOSITIONED WITH HOB ELEVATED, ATROPINE FOR SECRETIONS. ATTEMPTED TO SUCTION BUT PT CLAMPS DOWN ON THE TUBE SO COULD ONLY GET AROUND THE CHEEKS AND LIPS. PT'S COLOR IS POOR; SHE APPEARS MORE CYANOTIC AT THIS TIME. WILL CTM.
--- NOTE | 2018-11-02 03:26 | NUR ---
PT APPEARS TO BE RESTING COMFORTABLY. NO CHANGES.
--- NOTE | 2018-11-02 05:02 | NUR ---
MEDICATED FOR SECRETIONS AND DYSPNEA/PAIN. REPOSITIONED FOR COMFORT. ATTEMPTED SUCTIONING. PT CONTINUES TO HAVE GURGLING/WET BREATH SOUNDS. HER LIPS ARE SLIGHTLY DUSKY. WILL CTM.
--- NOTE | 2018-11-02 07:13 | NUR ---
PT CONTINUES TO HAVE WET BREATH SOUNDS. BREATHING HAS SLOWED TO 12-14 WHERE SHE HAD BEEN BREATHING IN THE 16-22 RANGE. PT APPEARS MORE COMFORTABLE. SHE IS MORE SOMNOLENT, LESS RESPONSIVE WITH MOVEMENT/REPOSITIONING. MEDICATED PER EMAR. REPORT PASSED TO ONCOMING SHIFT.
--- NOTE | 2018-11-02 09:51 | NUR ---
Pt visit this AM. Pt resting in bed with her eyes closed and is nonresponsive. Offered gentle voice and therapeutic touch. Pt appears comfortable. Pt's nurse Cee present during visit and is administering ativan. She reports Pt's symptoms are currently managed with no concerns. Will remain available.
--- NOTE | 2018-11-02 19:26 | NUR ---
SUMMARY PT REPOSITIONED Q2 HRS THROUGH THE DAY. PT WILL MOAN AND GRIMACE FACE WITH MOVEMENT. PT APPEARS TO RESPOND TO VERBAL STIMULI AT TIMES AND WILL PULL AWAY AND BITE DOWN WHILE PROVIDING ORAL CARE. PT IS RECIEVING A CONTINUOS DOSE OF MORPHINE VIA ADJUNCT INSTRUCTOR FOR PAIN MANAGMENT AND PRN ATIVAN. ORAL CARE AND SUCTIONING PROVIDED PRN. URINE OUT PUT OF 250 ML NOTED. BREATH SOUNDS REMAIN WET. REPORT GIVEN TO JO FLEMING.
--- NOTE | 2018-11-02 19:37 | NUR ---
PT RESTING COMFORTABLY IN BED. HARRIS TUBING NOW HAS SOME RED-TINGED SEDIMENT IN IT. SHE CONTINUES TO HAVE GURGLING BREATHS BUT THE SECRETIONS ARE TOO DEEP TO SUCTION OUT. WILL CJ.
--- NOTE | 2018-11-02 21:52 | NUR ---
PT MEDICATED WITH ATIVAN AND ATROPINE AT THIS TIME. NO CHANGES.
--- NOTE | 2018-11-02 23:26 | NUR ---
NO ACUTE CHANGES. PT REPOSITIONS EASILY. BREATHING SOUNDS SLIGHTLY LESS WET, RR 22.
--- NOTE | 2018-11-03 01:22 | NUR ---
PT REPOSITIONED AND BEGAN COUGHING UP THICK YELLOW BLOOD TINGED SPUTUM. SUCTIONED AROUND CHEEKS AND LIPS; CLENCHED TEETH PREVENTED ANY DEEPER SUCTIONING. MEDICATED WITH ATIVAN AND ATROPINE. PT OPENED HER EYES WITH THE COUGHING AND MOVEMENT BUT SHE DID NOT FOCUS OR TRACK AND DID NOT RESPOND TO VOICE.
--- NOTE | 2018-11-03 02:34 | NUR ---
PT'S MOTHER MARLENE CALLED TO CHECK ON PT'S STATUS. SHE SAID SHE UNDERSTOOD THAT THE PATIENT HAD BEEN EXTUBATED AND ASKED IF THE PT WAS STILL EXPERIENCING SEIZURES. SHE WAS TOLD THE SEIZURES HAD STOPPED BUT THAT THE PT WAS UNRESPONSIVE AND DID NOT WAKE UP OR MAKE ANY MEANINGFUL MOVEMENTS AND AT THIS POINT WE WERE JUST KEEPING THE PATIENT COMFORTABLE WITH MEDICATIONS FOR PAIN, ANXIETY, AND BREATHING. THE MOTHER BECAME UPSET AND ASKED WHO HAD MADE THE CALL TO PUT THE PATIENT ON COMFORT CARE. SHE WAS TOLD THAT THE PATIENT'S POA WOULD HAVE MADE THAT DECISION AND THAT IT WOULD BE BEST IF THE MOTHER TALK TO THE PATIENT'S UNCLE WHO HAD BEEN IN WITH THE PATIENT FREQUENTLY AND WOULD KNOW MORE ABOUT THE PROGRESSION OF THE PATIENT'S STATUS BEING CHANGED TO COMFORT CARE. THE MOTHER SAID SHE DIDN'T APPRECIATE HER "DRUG ADDICT DAUGHTER BEING MURDERED SLOWLY WITH PAIN AND ANXIETY MEDICATIONS." I ASKED IF IT HAD BEEN EXPLAINED TO HER THAT THE PATIENT WAS BRAIN AND SHE EXPRESSED THAT SHE THOUGHT OUR TESTS WERE WRONG. SHE SAID SHE WOULD BE SPEAKING WITH THE MANAGEMENT PROFESSIONAL OR PRESIDENT TOMORROW. ENCOURAGED TO CALL IN THE MORNING TO SPEAK TO THE PATIENT ADVOCATE ABOUT HER CONCERNS.
--- NOTE | 2018-11-03 05:41 | NUR ---
PT APPEARS COMFORTABLE AT REST. HER BREATHING IS FAST BUT UNLABORED AND SOUNDS LESS WET THAN PREVIOUSLY. REPOSITIONED.
--- NOTE | 2018-11-03 07:23 | NUR ---
PT APPEARS COMFORTABLE AT THIS TIME.
--- NOTE | 2018-11-03 09:23 | NUR ---
PT MED, REPOSITIONED, SUCTIONED.
--- NOTE | 2018-11-03 10:00 | NUR ---
DR KNOX HERE RECENTLY TO SEE PT.
--- NOTE | 2018-11-03 10:42 | NUR ---
PT TO IMAGING.
--- NOTE | 2018-11-03 11:05 | NUR ---
PT BACK FROM IMAGING. DISCUSSED PT'S STATUS WITH OTHER STAFF. PT SUCTIONED, REPOSITIONED. LINEN CHANGED. ASSISTED WITH COMFORT.
--- NOTE | 2018-11-03 11:07 | NUR ---
Pt visit this AM. Spoke with Pt's nurse Scar and he reports Pt had a CT performed this AM. Mother called and was concerned with prognosis. Scar reports Pt needs another scopalomine patch and will request from pharmacy. Pt arrived to room and appears comfortable. Scar reports pain and axiety are managed. Will remain available.
--- NOTE | 2018-11-03 13:05 | NUR ---
PT REPOSITIONED. APPEARS COMFORTABLE AT THIS TIME.
--- NOTE | 2018-11-03 14:38 | NUR ---
PT REPOSITIONED. FAMILY PRESENT. REQ'D TO TALK WITH UNEMPLOYMENT CLAIMS ADJUDICATOR. UNEMPLOYMENT CLAIMS ADJUDICATOR NOTIFIED AND IS TALKING WITH FAMILY.
--- NOTE | 2018-11-03 15:38 | NUR ---
Several visits with pt's family at their request. Pt's uncle, Maycol is MPOA. He was upset that Andree's mom was able to persude and bully staff into CT scan today. Maycol is concerned Andree's mom will be able to reverse "comfort measures." I listened empathically and provided emotional affirmation. Staff education provided as well. Maycol was calmed by relocation counselor and encouragement. Pt's brother arrived and further relocation counselor and assurance provided. They respond well to spiritual direction and prayer. Andree appeared non-responsive and comfortable. She appears well cared-for by staff. I will remain available.
--- NOTE | 2018-11-03 16:13 | NUR ---
PT APPEARS MORE COMFORTABLE AT THIS TIME.
--- NOTE | 2018-11-03 18:10 | NUR ---
PT RESTING QUIETLY, FAMILY REPORTS "THIS IS THE MOST RELAXED I'VE SEEN HER BE". RN REPORTED WILL LET PT REST THEN.
--- NOTE | 2018-11-03 19:15 | NUR ---
recvd report from previous shift supriya brandon, pt resting, appears to be peaceful, no limb movement, grimace, moaning
--- NOTE | 2018-11-03 20:30 | NUR ---
provided oral care, repositioning, anxiolytic per mar, atropine drops, mouth moisturizer, oral suction as much as pt will allow
--- NOTE | 2018-11-04 07:00 | NUR ---
REPORT FROM KEY FLEMING. ASSUMED PT CARE.
--- NOTE | 2018-11-04 07:10 | NUR ---
PT APPEARS TO BE LYING IN POSTION OF COMFORT. MOVES HEAD SIDE TO SIDE. RESP EVEN AND NON LABORED. MOANS OCCASSIONALY.
--- NOTE | 2018-11-04 07:50 | NUR ---
PT MEDICATED PER MAR WITH 2MG ATIVAN IV AND 1MG MORPHINE. HARRIS DRAINING KARL COLORED URINE, RECTAL TUBE DRAINING LIQUID GREENISH/BROWN MATTER. FACE WASHED WITH WASH RAG. PT MOVES ARMS AND HEAD. PT NOT VERBAL. DOES NOT ANSWER ANY QUESTIONS. PT DOES NOT OPEN EYES. PT RESONSIVE TO TACTILE STIMULI. TRIPLE LUMEN POWER PICC TO DIEGO, IVF INFUSING WELL. ASSESSMENT CHARTED.
--- NOTE | 2018-11-04 08:05 | NUR ---
PT APPEARS MORE COMFORTABLE AND RESTFUL.
--- NOTE | 2018-11-04 08:22 | NUR ---
SEE OTHER NOTE.
--- NOTE | 2018-11-04 09:33 | NUR ---
PT RESTING IN POSITION OF COMFORT. DOESNT APPEAR TO BE IN PAIN. RESP EVEN AND NON-LABORED. SKIN DRY. NO SECRETIONS NOTED.
--- NOTE | 2018-11-04 11:03 | NUR ---
PT MEDICATED PER EMAR. REPOSITIONED PT AND PROVIDED SOME SUNCTIONING. FACE WIPED.
--- NOTE | 2018-11-04 11:07 | NUR ---
Pt visit this AM. Pt is resting bed with her eyes closed and appears comfortable. FLACC score is 0/10. Gently spoke with Pt and offered therapeutic touch by rubbing her arm and shoulder. Spoke with Pt's nurse Mario and she reports Pt is intermittently biting her lip. Suggested offering ativan every 4 hours scheduled for symptom management. Discussion was made about the possibility of placement with hospice. Mario is agreeable with this plan. Spoke with showcase trimmer Page and discussed possibilty of placement and she is agreeable along as family is on bored. Called and left message with Pt's uncle asking him to call palliative care. Will bring up discussion in hopitalist meeting today. Will remain available.
--- NOTE | 2018-11-04 11:19 | NUR ---
PT MEDICATED PER ORDERS. NEW MORPHINE STOCK CLIPPER STARTED. PALLIATIVE CARE ROUNDED ON PT. WILL SUGGEST PT PLACEMENT TO HOSPICE.
--- NOTE | 2018-11-04 12:43 | NUR ---
PT FAMILY TO ROOM, FAMILY ASKING ABOUT MEDS. EXPLAINED MED MANAGEMENT WITH UNCLE. EXPLAINED THAT CARE MANAGEMENT STAFF WILL BE BY TO SPEAK WITH FAMILY.
--- NOTE | 2018-11-04 12:55 | NUR ---
PT MEDICATED WITH MORPHINE AND ATIVAN PER EMAR ORDERS. FAMILY AT BEDSIDE, WILL CONT TO MONITOR.
--- NOTE | 2018-11-04 13:05 | NUR ---
PT APPEARS MORE RESTFUL. RESP EVEN AND NON LABORED.
--- NOTE | 2018-11-04 14:30 | NUR ---
PALLIATIVE CARE AT BEDSIDE. PT APPEARS RESTFUL. NO OBVIOUS SECRETIONS. PT RESP EVEN AND NON LABORED AT THIS TIME, ROOM TIDIED.
--- NOTE | 2018-11-04 15:45 | NUR ---
BED BATH GIVEN. LINENS, GOWN AND BLANKET CHANGED. 210 KARL YELLOW URINE EMPTIED FROM HARRIS. HAIR WASHED, COMBED, PLACED IN BUN. REPOSITIONED. FAN PLACED BACK AT BEDSIDE. ORAL CARE DONE. LIPS WIPED. SUCTIONED SECRETIONS.
--- NOTE | 2018-11-04 16:29 | NUR ---
PT RESTING IN POSITION OF COMFORT.
--- NOTE | 2018-11-04 17:44 | NUR ---
PT RESTING IN POSITION OF COMFORT. NADN. REPOSITIONED.
--- NOTE | 2018-11-04 18:11 | NUR ---
No family present at time of visit. Andree was non-responsive to voice or touch. she appeared comfortable. I washed her face with warm washcloth and cleaned her mouth. She did not move at all. Provided prayer and presence at bedside. She appears to be nearer to end of life. Breaths shallow, body more postured, thick secretions from mouth. I will remain available to family.
--- NOTE | 2018-11-04 18:38 | NUR ---
PT APPEARS TO BE COMFORTABLE. REPOSITIONED TO LEFT SIDE. DANIELN.
--- NOTE | 2018-11-04 21:18 | NUR ---
pt repostioned and oral suction provided. pt repositioned and ext supported.
--- NOTE | 2018-11-05 07:51 | NUR ---
SHIFT SUMMARY PT COMFORT CARE. OCCATIONALLY OPENS EYES; NON-VERBAL. PT AVERAGE RR 12-16, CRACKLES BILAT LUNGS. SECRETIONS MANGED PER EMAR, SUCTION PRN AND WITH POSITIONING. NURSE SITTER PER ORDER. HEELS FLOATED, BUE SUPPORTED, PT REPOSITIONED T/O SHIFT; NO AREAS OF REDNESS NOTED. ORAL CARE AND SKIN CARE ABOUT EVER 2 HRS. STEVEN PATENT. REPORT GIVEN TO DAY SHIFT RN.
--- NOTE | 2018-11-05 09:57 | NUR ---
REINFORCING STEEL WORKER GAVE ME PERMISSION ON 11/04/18 TO WORK WITH THIS PT ON 11/05/18.
--- NOTE | 2018-11-05 10:55 | NUR ---
PROVIDED ORAL CARE, USED MOISTENED TOOTHETTE TO CLEAN OUTSIDE OF TEETH. TEETH CLENCH, COULD NOT GET TO INNER PORTION OF TEETH OR TONGUE. USED SUCTION ON OUTER GUMLINE. PROVIDED CHARANJIT BAD, NURSE ADMINISTERED PRN ANTIANXIETY MED 20 MINUTES BEFORE. SEEMED SLIGHTLY AGITATED DURING. CHANGED LINENS.
--- NOTE | 2018-11-05 12:14 | NUR ---
[address] BRANNON REGARDING RECTAL TUBE AND ORDER TO REMOVE OBTAIN. RECTAL TUBE DC'D INTACT
--- NOTE | 2018-11-05 12:31 | NUR ---
REMOVED RECTAL TUBE. TUBE INTACT.
--- NOTE | 2018-11-05 12:49 | NUR ---
powerglide powerglide to left upper arm does not flush. catheter removed intact
--- NOTE | 2018-11-05 13:31 | NUR ---
Pt visit this afternoon. Pt resting in bed with her eyes closed and appears comfortable. Pt's nurse is unavailable at time of visit. Spoke with charge nurse and she reports no concerns at this time. Will remain available.
--- NOTE | 2018-11-05 16:14 | NUR ---
Andree was alone in room and apears comfortable. Breathing and posturing about the same as yesterday. Prayer provided at bedside. I will remain available to family.
--- NOTE | 2018-11-05 18:08 | NUR ---
SUMMARY PATIENT LIES QUIETLY WHEN UNDISTURBED, RESTLESS AND FURROWS BROW WHEN TURNED OR CARE IS BEING DONE. PATIENT OCC OPENS EYES SPONTANEOUSLY BUT DOES NOT TRACK. CLENCHES TEETH AND SOME ORAL FROTHING WHEN REPOSITIONED THAT ABATES WHEN PATIENT UNDISTURBED. PATIENTS UNCLE JESSICA IN TO VISIT THIS EVENING AND IS ASKING ABOUT DISCHARGE PLANS. JESSICA SPOKE WITH IMELDA, TRADE SPECIALIST, VIA [employer]. PER JESSICA PATIENT IS CURRENTLY ON MEDICAID. JESSICA TELLS ME HE WILL TRY TO CONTACT SOCIAL SECURITY OFFICE AND [employer] IN THE MORNING.
--- NOTE | 2018-11-06 02:26 | NUR ---
PT WITH INCREASED RESTLESSNESS NOTED APPROX 01OO. GAVE ATIVEN IV.AT THIS TIME, PT STILL APPEARS RESTLESS INTERMITTENTLY. EYES OPEN. PUPILS ARE DILATED AND FIXED. PT MOVING LEGS AND ARMS POSTURING TOWARDS BODY. CANVAS MARKER PATENT. WITH REPOSITIONING,AND HOB FURTHER ELEVATED. PT SX. PT DID APPEAR LESS RESTLESS.
--- NOTE | 2018-11-06 06:08 | NUR ---
SUMMARY PT HAS REQUIRED ATIVAN X 2 THIS SHIFT FOR RESTLESSNESS. AT THIS TIME RESP APPEARING MORE SHALLOW.PT SLEEPING QUIETLY.
--- NOTE | 2018-11-06 08:18 | NUR ---
PT REPOSITIONED. ASSISTED WITH ADL'S PRN. MED ORDERED. BED ALARM BACK IN PLACE.
--- NOTE | 2018-11-06 08:20 | NUR ---
PT ASSISTED WITH ASSIST FROM FEMALE HEARING EXAMINER.
--- NOTE | 2018-11-06 10:05 | NUR ---
PT RESTING QUIETLY NOW. WILL REPOSITION WITH ASSIST FROM FEMALE TRAILER RENTAL CLERK.
--- NOTE | 2018-11-06 10:14 | NUR ---
FEMALE CHARGE OUT CLERK IN ROOM AT TIME OF PERSONAL CARE.
--- NOTE | 2018-11-06 10:15 | NUR ---
DISCUSSED PT'S STATUS WITH EXTENDED INSURANCE CLERK.
--- NOTE | 2018-11-06 12:01 | NUR ---
PT REPOSITIONED. MED PRN. FEMALE STUDENT NURSE ASSISTED WITH BELEM-CARE AND REPOSITIONING PT.
--- NOTE | 2018-11-06 13:27 | NUR ---
PT REPOSITIONED, MEDICATED. FEMALE BOX TENDER ASSIST WITH CARE. FAMILY PRESENT NOW.
[2018-11-06 14:31] LABS: Result SEE LABOUT RESULTS
--- NOTE | 2018-11-06 15:27 | NUR ---
PT RESTING QUIETLY. FAN IN PLACE.
--- NOTE | 2018-11-06 16:29 | NUR ---
Andree appeared restless. Informed RN who medicated immediately. No family present. Pt is non-verbal and is non-responsive to voice or touch. Prayer provided at bedside. I will remain available.
--- NOTE | 2018-11-06 16:35 | NUR ---
PT MED FOR ANXIETY AND PAIN. PT REPOSITIONED. POWER-PICC CAME OUT WHILE PT WAS BEING REPOSITIONED. MAINTENANCE MECHANIC TO ROOM. POWER PICC MEASURED AND CLARIFIED WITH MAINTENANCE MECHANIC THAT ENTIRE POWER-PICC WAS OUT. PT NOW RESTING QUIETLY AFTER BEING MEDICATED AND REPOSITIONED.
--- NOTE | 2018-11-06 17:36 | NUR ---
PT RESTING QUIETLY AT THIS TIME. DOES NOT FEEL WARM TO TOUCH AT THIS TIME.
--- NOTE | 2018-11-06 18:21 | NUR ---
PT CLEANED UP AND REPOSITIONED WITH ASSIST FROM FEMALE MARKETING DEVELOPMENT REPRESENTATIVE.
--- NOTE | 2018-11-07 08:00 | NUR ---
PATIENT RESTLESS. ATIVAN IV ADM AT THIS TIME. CONT TO MONITOR.
--- NOTE | 2018-11-07 09:37 | NUR ---
ATIVAN ADM AT THIS TIME FOR CONT RESTLESSNES. CONT TO MONITOR
--- NOTE | 2018-11-07 11:30 | NUR ---
pt appears agitated and restless, moaning. provided analgesia and anxiolytics per mar with little effect. reassessment of IV shows leading peripheral IV. LONNIE Chery started new IV, will readminister anxiolytics and analgesia per mar.
--- NOTE | 2018-11-07 12:50 | NUR ---
PALLIATIVE CARE IN TO TALK WITH PATIENT'S UNCLE, PLAN TO CHANGE RX PER HIS REQUEST.
--- NOTE | 2018-11-07 17:22 | NUR ---
Pt is writhing in bed at this time, appears very uncomfortable and agitated. Nurse, Hellen, reports that the pt's family member is not allowing her to give ativan. She explains that the pt's uncle at bedside is declining medications due to the concern he has that the flushes and fluids are prolonging the pt's life. Pt's uncle, Maycol, is at bedside. He is upset that the patient has not yet and he states, "We have to hurry this up, you guys are going to keep her alive forever!" He shares that his brother is in the medical field and has told him that she shouldn't be getting an IV morphine drip because the fluids we give her are keeping her alive. Advised that dying is a process and that everyone's process of dying is unique to the person. Instructed that the morphine SENIOR CLINICAL DATA MANAGER was the treatment that she needed at the time to control pain. He is requesting a patch for pain and he is stating that he will not allow the morphine to continue. He states further that he has been waiting for the doctor for four hours. He expresses frustration over having to wait and states that he needs to go. He asks me to follow up with the doctor regarding the pain patch. Called and spoke to Dr. Dawson. He allows pain medication adjustment and orders are placed to discontinue morphine SENIOR CLINICAL DATA MANAGER. Consulted pharmacy to dose fentanyl patch on calculations from administered morphine. New orders placed. Reviewed with nurseHellen. Will remain available.
--- NOTE | 2018-11-07 18:15 | NUR ---
SHIFT SUMMARY PATIENT'S UNCLE IN TO SEE, UPSET WITH PATIENT RECEIVING IVF (NS @ 25 ML/HOUR FOR EDI ARCHITECT.) FRANCHESCA (PALLIATIVE CARE RN) IN TO SPEAK W/HIM SEVERAL TIMES, THEN SHE SPOKE WITH DR BRANNON FOR POSSIBLE MED CHANGES (NOW RECEIVED.) PATIENT HAS BEEN RESTLESS AT TIMES; CALMS WITH ATIVAN ADMINISTRATION. NO CHANGE IN CONDITION. PATIENT'S UNCLE PLANS TO COME IN AM AND SPEAK WITH
--- NOTE | 2018-11-07 18:40 | NUR ---
called by nursing to return. pt's daughter just left to go home and pt . notified offered to notify daughter he stated he would take care of that. [facility] pt has her blanket and cell phone and a card on bed to go with her. pt glasses not on her or in room. she is also wearing her headband.
--- NOTE | 2018-11-07 18:55 | NUR ---
RECVD REPORT FROM PREVIOUS SHIFT RN JANICE, PT LYING IN BED, APPEARS TO BE SLEEPING PEACEFULLY, BED RAILS UP X 4, BED IN LOWEST POSITION
--- NOTE | 2018-11-08 01:15 | NUR ---
pt still agitated, moving legs continuously. provided IV analgesia and anxiolytics per mar, will reassess
--- NOTE | 2018-11-08 09:40 | NUR ---
COMFORT CARE ASSESSMENT: Pt writhing in bed, all four extremities and head mobile. She is grunting, heavy, rapid resp rate. Spoke to RN re: positioning and eMAR reviewed. New orders entered per Dr for Roxanol. Pt has received Ativan per eMar all night and nurse reports pt has not slept. Recommended giving the Ativan that is now due and starting pt with 10 mg of Roxanol SL per new orders with increase to 15 mg when next due if pt's agiation and distress is unrelieved. Pt has had personal care and repositioning many times this am per RN but cont. to remove pillows placed for support or comfort. Will reassess later today to see if Roxanol effective. No family at bedside at this time.
--- NOTE | 2018-11-08 12:00 | NUR ---
SECOND COMFORT CARE VISIT after Roxanol had been administered twice. Pt is still mobile in bed but does not appear as agitated and she is not grunting and grimacing at this visit. No visitors in the room. Pt does not respond to verbal or tactile stimuli but when I held her hand she seemed to settle down for a few minutes at a time. Plan to request bernardo sorensen volunteers to sit with pt if they are available starting tomorrow. Case conferenced with pt's RN later after my visit and she stated pt finally seemed to be resting comfortably. Discussed plan for volunteers to sit with her with RN.
--- NOTE | 2018-11-08 14:30 | NUR ---
PT MEDICATED PRN FOR PAIN AND AGITATION. PT THRASHING AROUND IN BED. PT REPOSITIONED IN BED. BED BATH GIVEN AND MOUTH SUCTIONED. MOUTH MOISTURIZER APPLIED. LINENS CHANGED PRN. PILLOWS PLACED UNDER ARMS AND KNEES FOR COMFORT. ATTENDS APPLIED. HARRIS CARE COMPLETED, 600CC OUTPUT. SOFT MUSIC PLAYING IN ROOM AND FAN BLOWING FOR COMFORT.
--- NOTE | 2018-11-08 14:46 | NUR ---
NEW IV STARTED FOR LEAKING AND PT MEDICATED WITH ATIVAN. SPOKE TO FAMILY AND REVIEWED PLAN OF CARE. PT HAS BEEN VERY RESTLESS AND THRASHING, WILL CONTINUE TO MEDICATED PER EMAR ORDERS. DISCUSSED PT RESTLESSNESS WITH DOCTOR ON AM ROUNDS. REPOSITIONING NEEDED. EGG CRATE PLACED TO BED FOR COMFORT. SOFT MUSIC PLAYING AND PT HOME STUFFED BEAR GIVEN FOR COMFORT.
--- NOTE | 2018-11-08 17:20 | NUR ---
I have arranged for Keenan Maldonado volunteers to sit with pt starting tomorrow. Augusta, community education coordinator, will try to get volunteers for as many two hour shifts as possible to help ease pt's agitation. RN notified and asked to pass on to nurses coming on shift.
--- NOTE | 2018-11-08 17:36 | NUR ---
PT HAS BEEN RESTLESS THIS SHIFT. WILL REST FOR SHORT AMOUNTS OF TIME AFTER ATIVAN AND ROXINOL. NEW IV TO RIGHT FOOT, IF IV GOES BAD PT MAY BE POSSIBLY SWITCHED TO SL ATIVAN. REPOSITIONING PATIENT Q2, ALTHOUGH SHE IS MOVING HERSELF CONSTANTLY IN BED. BEDBATH GIVEN THIS AM. SUCTIONING PRN FOR MINIMAL MOUTH SECRETIONS. MOUTH MOISTURIZER USED NEEDED FOR DRYNESS. HARRIS DRAINING WELL, KARL URINE, CATH CARE THIS AM. ATTENDS IN PLACE, NO BMS. FAMILY VISIT FOR A SHORT AMT OF TIME THIS AM. CONT COMFORT CARE MEASURES. WILL REPORT TO NOC RN.
--- NOTE | 2018-11-08 19:10 | NUR ---
RECVD REPORT FROM PREVIOUS SHIFT RN COLT, PT SLEEPING PEACEFULLY IN BED, BED RAILS UP X 4 WITH SEIZURE PADES ON, BED IN LOWEST POSITION, BED ALARM ON
--- NOTE | 2018-11-08 21:20 | NUR ---
pt appears to be resting peacefully, snoring, no agitation exhibited, limbs still. will reassess
--- NOTE | 2018-11-09 05:36 | NUR ---
SHIFT SUMMARY: PT REMAINED UNAWARE OF SURROUNDINGS. PERIPHERAL IV IN R FOOT LEAKING, REMOVED WNL. PER PALLIATIVE CARE ORDERS, NO PERIPHERAL IV STARTED. CONSULTED WITH PHARMACY AND ANNEL MANZANO FOR ORDERS. CONCENTRATED LORAZEPAM SUBSTITUTED FOR IV ATIVAN TO BE GIVEN BUCCAL WELL ANALGESIA ROXANOL. ADMINISTRATION PER MAR RESULTS WITH PT CALM, NO MOVEMENT OF LIMBS, APPEARS RESTFUL. PT COUGHING OPAQUE TANNISH-PINK SPUTUM, SUCTIONED Q1. PT TURNED Q2. URINE OUTPUT OF DARK TEA URINE <300 ML THIS SHIFT IN HARRIS CATHETER. NO FAMILY VISITED THIS SHIFT
--- NOTE | 2018-11-09 09:03 | NUR ---
PT BREATHING REGULAR RATE. RATTLING NOTED IN UPPER AIRWAYS WITH SECRETIONS NOTICEABLE. PT SUCTIONED AND ATROPINE DROPS GIVEN PER EMAR. HOB ELEVATED. PT BITES ON SUCTION CATHETER AND OPENS EYES DURING SUCTIONING. NO S/S PAIN OR DISTRESS. REPOSITIONED FOR COMFORT. COOLNESS TO EXTREMITIES. PALENESS IN SKIN, NO MOTTLING. PALLIATIVE CARE UPDATED ON PATIENT. VOLUNTEER SITTER TO BE IN TODAY TO PROVIDE SUPPORT FOR PATIENT.
--- NOTE | 2018-11-09 10:20 | NUR ---
PAL CARE COMOFRT CARE VISIT MADE. Pt lying on back, hob elevated with neck hyperextended. She appears calm with none of the agitation or mobility in the bed noted yesterday present today. Pt has loud, obstructed breathing noted. Another RN assisted me in turning pt to left side and positioning head with chin tucked down. This alleviated the obstructed breathing for now. Pt opens eyes with turning but no grimace or distress noted in face or audibly either. Pt cont to have some urine output at this time. No patent IV sites remain and medications are being given SL with good results. Pt's extremeties cool and color changes noted in hands/feet and overall. Confirmed with advertising coordinator that we have volunteers to sit with pt today from 10 am to 6pm, 8pm-10pm and some hours tomorrow and Saturday also if needed. We will need to let Augusta Fields know if pt passes [phone].
--- NOTE | 2018-11-09 11:36 | NUR ---
PT CONTINUES TO APPEAR COMFORTABLE, RESP E/U. NO SECRETIONS AT THIS TIME. PT REPORSITIONED NEEDED. NO FAMILY IN TO VISIT THIS SHIFT. VOLUNTEER SITTER PRESENT, READING TO PATIENT AND PROVIDING COMPANY.
--- NOTE | 2018-11-09 17:00 | NUR ---
PAL CARE COMFORT CARE VIST: Pt's uncle at bedside talking with Keenan Maldonado volunteer. Time spent listening and supporting Maycol. He is appreciative of the volunteers vigiling with Andree. We discussed the s/s of pt progressing in dying process. She appears very comfortable and without agitation now. Maycol is grateful for this also. We discussed her audible secretions in her upper airway. RN had just been in to assess and was getting a scopolomine patch. Pt's color dusky. Maycol is aware that pt is imminent and is considering staying over night after 10 pm when final volunteer for the night is leaving. He knows that if he prefers our volunteer can leave earlier and that this is at his discretion. I called our correspondence coordinator with an update and asked that tomorrow's volunteer, due in at 9 am, call for a status update before coming in. She has relayed that information and again asks that she be called and a message left if pt passes. Augusta's number is [phone].
--- NOTE | 2018-11-09 19:00 | NUR ---
RECVD REPORT FROM PREVIOUS RN COLT, SPOKE WITH PALLIATIVE CARE TUTU FOR UPDATE, VOLUNTEERS AND FAMILY IN ROOM WITH PT. PT APPEARS TO BE RESTING PEACEFULLY
--- NOTE | 2018-11-09 19:31 | NUR ---
PT HAS APPEARED COMFORTABLE THIS SHIFT. TURNING Q2HRS. PT DOES NOT MOVE ON HER OWN OR THRASH AROUND. PT HAS SECRETIONS THAT ARE MANAGED WELL WITH SIDE LYING POSITION, SUCTIONING, SCOP PATCH AND ATROPINE DROPS. PT HARRIS DRAINING. ATTENDS REMAINED DRY T/O SHIFT. ORAL CARE PROVIDED NEEDEDD FOR COMFORT. PT HAS BEEN UNRESPONSIVE AND WILL OCCASIONALLY OPEN EYES. UNCLE HAS BEEN AT BEDSIDE ALONG WITH VOLUNTEER SITTERS.
--- NOTE | 2018-11-09 21:24 | NUR ---
VOLUNTEER AND UNCLE IN ROOM, PT FLUSHED, RAPID DEEP BREATHING, ONE EYE OPEN. PROVIDED ANXIOLYTICS WITH SL ATIVAN AND ROXANOL PER NOV, WILL REASSESS
--- NOTE | 2018-11-09 22:15 | NUR ---
PT RED FLUSHED FACE, AGITATED STILL. PROVIDED ANXIOLYTIC AND ROXANAL PER MAR. REPOSITIONED, ORAL CARE, COOL CLOTH TO FOREHEAD. WITHIN 10 MINUTES, PT'S RR SLOWED TO NORMAL, APPEARED TO BE CALMING. WILL REASSESS
--- NOTE | 2018-11-09 23:17 | NUR ---
pt uncle requests anxiolytic and pain medication, as he believes pt is agitated. pt appears red and flushed, cool cloth applied. medicated for agitation and pain per mar. will reassess
--- NOTE | 2018-11-10 00:15 | NUR ---
REPOSITIONED PT, FAN ON PT AND ONLY SHEET OVER SHE IS WARM AND FLUSHED. MEDICATED PER MAR AND SWABBED MOUTH, PROVIDED MOISTENER
--- NOTE | 2018-11-10 02:42 | NUR ---
pt appears to be sleeping peacefully, no agonal breathing, no moaning or limb movement
--- NOTE | 2018-11-10 03:45 | NUR ---
pt sleeping, no agonal breathing and steady, no restless legs. pt's uncle asleep in recliner
--- NOTE | 2018-11-10 04:39 | NUR ---
shift summary: comfort care rounding done q1-2 t/o shift. pt's uncle with pt t/o shift, volunteer from 8-10. pt required medication for agitation and pain frequently at the beginning of shift, exhibiting moaning, heavy breathing, flushed face, sweating and limb movement. pt was provided with SL ativan and Roxanol per mar. pt appears to be relaxed and peaceful approx 0200 on hourly rounding with both pt and uncle sleeping. oral care performed on rounding and q2 turns. powers remained patent and draining with <300 ml out of dark tea colored urine
--- NOTE | 2018-11-10 10:52 | NUR ---
Pt visit this AM. Volunteer present during visit. Volunteer expresses concerns of Pt feeling warm. Pt's facial skin appears red and is warm to touch. Volunteer has Pt legs and arms exposed with fan blowing toward Pt for comfort. Pt appears agitated as evidenced by swinging her arms and legs intermittently. Spoke with Pt's nurse and suggested offering tylenol suppository for comfort. Discussed the use of haldol for agitation and nurse is agreeable. Called and spoke with Dr Swann and recieved V/O for haloperidol for agitation. Placed medication order in [facility]. Will remain available.
--- NOTE | 2018-11-10 11:52 | NUR ---
CONICAL MIXER AT BEDSIDE
--- NOTE | 2018-11-10 16:48 | NUR ---
Keenan Maldonado volunteer at bedside. No family present at time of visit. Andree is non-responsive and calm. She appears peaceful and well cared-for by nursing. Prayer provided at bedside. I will remain available.
--- NOTE | 2018-11-10 18:32 | NUR ---
SHIFT SUMMARY PT HAS HAD MOMENTS OF REST AND MOMENTS OF THRASHING. HOSPICE VOLUNTEERS AT BEDSIDE UNTIL 1700. BREATHING HAS BECOME MORE LABORED, UNEVEN. TYLENOL SUPP HELPED WITH WARM SKIN.
--- NOTE | 2018-11-10 19:30 | NUR ---
PT HAD COPIOUS WHITE FOAMY SECRETIONS, SECRETIONS AUDIBLE IN THROAT WITH BREATHING. PT SUCTIONED MUCH POSSIBLE AND ATROPINE GIVEN. SHE IS WARM TO THE TOUCH, FAN IN PLACE. PT PULLED UP AND REPOSITIONED IN BED. SAFETY GUARDS PRESENT ON THE RAILS FOR MOVEMENT/THRASHING. SHE WIGGLES BACK DOWN IN THE BED AFTER REPOSITIONING. LIPS APPEAR MORE DUSKY. SHE HAS MULTIPLE BRUISES FROM HITTING LIMBS ON THE BED RAILING. IT IS TOO EARLY FOR MORE HALDOL AT THIS TIME, NO IV, CONCERNED PO ATIVAN WILL WORSEN SECRETIONS AT THIS TIME. UOP IS RED WITH DARK ARUN-APPEARING SEDIMENT. WILL CTM.
--- NOTE | 2018-11-10 20:48 | NUR ---
PT APPEARS TO BE RESTING COMFORTABLY. BREATHING HAS EASED AND IS NOT NOISY. SHE IS CURRENTLY NOT MOVING AROUND IN THE BED.
--- NOTE | 2018-11-10 22:08 | NUR ---
SUCTIONED FOR SECRETIONS, ATROPINE GIVEN. PT CURRENTLY RESTING COMFORTABLY, DOES NOT REQUIRE ANY FURTHER MEDICATIONS. WILL CTM.
--- NOTE | 2018-11-11 | NUR ---
PT MEDICATED FOR AGITATION, AND MOVING AROUND. SUCTIONED. WHEN SHE COUGHS IT SOUNDS VERY MOIST. SHE IS PRODUCING A THICK YELLOW-WHITE FOAM THAT BUBBLES FROM HER MOUTH AND NOSE. WILL CTM.
--- NOTE | 2018-11-11 01:16 | NUR ---
PT APPEARS TO BE RESTING COMFORTABLY AT THIS TIME
--- NOTE | 2018-11-11 03:00 | NUR ---
PT REPOSITIONED AFTER WIGGLING DOWN, SUCTIONED, BELEM CARE COMPLETED.
--- NOTE | 2018-11-11 04:49 | NUR ---
PT APPEARS TO BE CLENCHING HER FISTS, MOVING AROUND A BIT MORE THAN PREVIOUSLY. MEDICATED WITH ATIVAN. ATROPINE FOR SECRETIONS, PT SUCTIONED. SHE CONTINUES TO HAVE WET-SOUNDING BREATHS. NO FURTHER CHANGES.
--- NOTE | 2018-11-11 06:45 | NUR ---
PT APPEARS COMFORTABLE AT THIS TIME. SUCTIONED. NO CHANGES, SHE IS RESTING WITH EYES CLOSED AND NOT CURRENTLY THRASHING AROUND.
--- NOTE | 2018-11-11 07:25 | NUR ---
SUCTIOING COMPLETED PRIOR TO PO MEDS
--- NOTE | 2018-11-11 09:38 | NUR ---
Pt resting in bed with her eyes closed. She appears comfortable with a FLACC score of 0/10. Spoke with Pt's nurse Melissa and she reports not concerns at this time. Discussion was made about offering atropine more often and Melissa is agreeable. Will remain available
--- NOTE | 2018-11-11 11:30 | NUR ---
director of critical care at bedside. Pt suctioned. resting comfortably with minimal movements.
--- NOTE | 2018-11-11 16:13 | NUR ---
Keenan Maldonado volunteer at bedside. Andree appears restless. She retracts from touch and is otherwise non-responsive. Informed palliative care RN of pt's restlessness.
--- NOTE | 2018-11-11 16:18 | NUR ---
Andree was non-communicative, and unconscious and appeared well supported by Keenan Maldonado and Nursing. I provided soft acoustic guitar music and pastoral presence for non-pharmacologic comfort, and encouragement. Andree remained unresponsive with nuetral episodic non-verbal gesticulations. No indications of physical pain i.e. grimmacing, sour facial animations or groans.
--- NOTE | 2018-11-11 16:52 | NUR ---
Reports from staff that this patient is difficult to manage, as far as anxiety and agitation symptoms. There is Keenan Maldonado volunteer at bedside. She reports that the patient did have an episode of agitation that is now resolved. Educated volunteer gas pumping station operator light. She feels comfortable calling nursing with the call light if the patient appears in distress in the future. Palliative care to check in with patient daily and PRN for symptom assessment.
--- NOTE | 2018-11-11 20:13 | NUR ---
PT IS RESTING COMFORTABLY BUT DOES WITHDRAW WITH ANY TOUCH. BITES DOWN ON WHEN ORAL SUCTIONING AND PULLS FACE AWAY WHEN DOING ADLS. DID LIMITED BED BATH, AND ATTENDS CHANGED DUE TO SOME SOILING. CATH CARE DONE. MEDICATED WITH IM ATIVAN AND ATROPINE FOR SECREATIONS. NO FAMILY PRESENT. WILL MONITOR FREQUENTLY AND PROVIDE COMFORT CARE.
--- NOTE | 2018-11-12 05:46 | NUR ---
PT HAS BEEN RESTING WELL THIS MORNING ON LEFT SIDE. WAS MEDICATED T/O SHIFT FOR SIGNS OF PAIN/AGGITATION AND AIR HUNGER. WAS REPOSITIONED FREQUENLTY WHILE PROVIDING COMFORT CARE. PT CURRENTLY WITHOUT SIGNS OF DISTRESS. RESP DO SOUND WET BUT ARE EVEN AND HAVE BEEN LESS LABORED THIS MORNING.
--- NOTE | 2018-11-12 08:30 | NUR ---
PAL CARE COMFORT CARE ASSESSMENT AND VISIT: PT LYING ON LEFT SIDE WITH HOB SL ELEVATED. RESPIRATIONS SLOW, SLIGHLY LABORED, POOLED SECRETIONS NOTED IN LEFT CHEEK. ORAL SUCTION DONE. PT REPOSITIONED UP IN BED AND TURNED FOR COMFORT. WRINKLES OF TURN SHEET REMOVED. PT POSITIONED ON HER RIGHT SIDE AND SUPPORTED WITH PILLOWS. SHE HAS AN APPROXIMATELY 2" REDENED AREA OVER BONY PROMINENCE OF LEFT HIP. PT WITH POSTURING NOTED OF HANDS AND WRISTS. NO NONVERBAL INDICATORS OF PAIN, ANXIETY, DISTRESS OR AGITATION NOTED AT THIS TIME. PT'S RESPIRATIONS ARE SHALLOW AND RASPY BUT NOT GURGLING. PT CONT. TO HAVE URINE OUTPUT IN HARRIS DRAINAGE BAG OF APPROX 5-600 ML IN PASAT 24 HOURS. CASE CONFERENCED WITH PT'S RN AND TWO STUDENT NURSES RE: MEDICATIONS AND PLAN OF CARE. NO FAMILY OR MACKENZIE CHAYITO VOLUNTEERS PRESENT CURRENTLY. WILL ASK OUR PAL CARE VOLUNTEER TO SPEND TIME WITH
--- NOTE | 2018-11-12 13:24 | NUR ---
Andree appears calm and comfortable. Volunteer at bedside providing presence. Prayer provided at bedside. I will remain available to pt and family.
--- NOTE | 2018-11-13 07:34 | NUR ---
SHIFT SUMMARY NO ACUTE CHANGES. PT REPOSITIONED T/O SHIFT. PERSONAL/ORAL CARE DOCUMENTED. PARTIAL SPONGE BATH AND ATTENDS CHANGE, CATH CARE AND PERICARE COMPLETE. ORAL SUCTION PRN. AGGITATION/TEMP (103F) AND SIGNS OF PAIN MANGED PER EMAR. REPORT GIVEN TO DAY SHIFT RN.
--- NOTE | 2018-11-13 09:44 | NUR ---
PATIENT REPOSITIONED AT THIS TIME. NO S/SX DISCOMFORT NOTED. RESTING QUIETLY. RESP E/U. EXT WARM, PALE.
--- NOTE | 2018-11-13 11:25 | NUR ---
Andree was sleeping and non-responsive. laborer pullet farm Shankar was in the room showing love, attention and support. I provided gentle acoustic guitar music for non-pharmaceutical comfort and encouragement. No indications of discomfort, or non-visceral pain noted. Andree remained stationary, and calm for the duration of the visit. I concluded the encounter with an adubile prayer for peace and spiritual healing.
--- NOTE | 2018-11-13 12:58 | NUR ---
VOLUNTEER HERE THIS AM TO SIT W/PATIENT. BEDBATH GIVEN. PATIENT CONT W/O S/SX DISTRESS. RESP E/U. CONT TO MONITOR.
--- NOTE | 2018-11-13 13:36 | NUR ---
PATIENT BEGINNING TO SHOW DISCOLORATION IN FACE. MEDICATED FOR SECRETIONS. APPEARS IN NO DISTRESS AT THIS TIME. EXTREMITIES WARM, PALE.
--- NOTE | 2018-11-13 13:48 | NUR ---
Comfort Care visit this afternoon. Pt is resting in bed and appears comfortable. Recieved recent bed bath from her STAFF COUNSEL. FLACC score 1/10 due to respirations 20/min. Offered therapeutic touch by rubbing Pt's shoulder with no response. Spoke with Pt's nurse and she reports no concerns at this time. She reports plan is to offer ativan shortly. Will remain available for symptom management
--- NOTE | 2018-11-13 17:36 | NUR ---
Andree appears to be nearing end of life. Mottling to hands, breaths very shallow, no longer restless. She appears peaceful. she is completely non-responsive. No family present. Sat at bedside providing presence and prayer. Vacuum Closing Machine Operator services will remain available.
--- NOTE | 2018-11-13 17:36 | NUR ---
RESP SHALLOW, 18 AND UNLABORED. NO S/SX DISCOMFORT NOTED.
--- NOTE | 2018-11-14 07:35 | NUR ---
SHIFT SUMMARY PT REPOSITIONED Q2; LIMBS SUPPORTED. HARRIS PATENT; CATH/BELEM CARE DONE. ORAL SWABS/CARE Q2 AND PRN; ORAL SUCTION PRN, MINIMAL SECRETIONS. PAIN/AIR HUNGER MANGED PER EMAR. REPORT GIVEN TO DAY SHIFT RN.
--- NOTE | 2018-11-14 08:29 | NUR ---
NO S/SX OF DISTRESS AT THIS TIME. REPOSITIONED. PT OPENS EYES TO STIMULATION. ORAL & BELEM CARE COMPLETED. WILL CTM AND MED PER EMAR PRN.
--- NOTE | 2018-11-14 13:24 | NUR ---
NO S/SX OF DISTRESS. SHE IS MOVING IN BED. CLAMPED DOWN WITH TEETH WHEN COMPLETING ORAL CARE.
--- NOTE | 2018-11-14 17:33 | NUR ---
PT IS WARM TO TOUCH. REPOSITIONED, ADMINISTERED TYLENOL AND PLACED FAN NEAR PT. NO S/SX OF DISTRESS.
--- NOTE | 2018-11-14 18:32 | NUR ---
SHIFT SUMMARY: NO S/SX OF DISTRESS NOTED T/O SHIFT. TYLENOL GIVEN FOR WARMTH X 1. SHE HAS BEEN REPOSITIONED Q2 HRS. MIN. DARK KARL URINE OUTPUT IN HARRIS CATH. WILL CTM UNTIL REPORT GIVEN TO NEXT RN.
--- NOTE | 2018-11-14 19:43 | NUR ---
therautic time with patient. assessemnt and review of medication for possible contibuting factors to fever.
--- NOTE | 2018-11-15 07:33 | NUR ---
PT HAVING DIFFICULTY CLEARING OWN SECREATIONS. SCOPOLAMINE PATCH PLACED BEHIND R EAR. SUCTIONED AND ORAL CARE COMPLETED. REPOSITIONED TO MAINTAIN AIRWAY.
--- NOTE | 2018-11-15 09:39 | NUR ---
PT GRIMACING, UNCONTROLLED MOVEMENTS. MEDICATED PER EMAR. PERSONAL CARE COMPLETED. REPOSITIONED. TURNED SOFT MUSIC ON. SECREATIONS MANAGED AT THIS TIME. RESP ARE SHALLOW.
--- NOTE | 2018-11-15 10:48 | NUR ---
PROVIDED BED BATH, ATTENDS CHANGE, BELEM AND CATH CARE. ORAL CARE WITH SUCTIONING COMPLETED. SHE HAS THICK SECRETIONS SHE IS COUGHING UP, NO GAG REFLEX TO MANAGE SECRETIONS ON HER OWN. LINENS CHANGED.
--- NOTE | 2018-11-15 13:22 | NUR ---
MEDICATED PER EMAR. REPOSITIONED PT. ORAL CARE COMPLETED.
--- NOTE | 2018-11-15 15:22 | NUR ---
PT MEDICATED PER EMAR. ORAL CARE DONE AT THIS TIME. PT'S COLOR APPEARS DUSKY, INCREASED ACCESORY MUSCLE USE. PALLIATIVE CARE IN ROOM TO SEE PT.
--- NOTE | 2018-11-15 18:00 | NUR ---
PT CONTINUES TO HAVE DIFFICULTY CLEARING THICK SECRETIONS ON OWN, SUCTIONING AND ORAL CARE DONE AT THIS TIME. REPOSITIONED HEAD ON PILLOWS. INCREASED USE OF ACCESSORY MUSCLES, MEDICATED PER EMAR.
== END 2018-11-15 22:17 | DRG 870 ==
LOC: ER 11:37 → ICUW 13:23 → SURS 10-29 03:02
PROVIDERS: Emergency Medicine; Internal Medicine; Internal Medicine Critical Care Medicine; Internal Medicine Pulmonary Disease; Psychiatry & Neurology Neurology; ADMIT Hospitalist
PROC: 0BH18EZ Insertion of Endotracheal Airway into Trachea, Via Natural or Artificial Opening Endoscopic (ICD-10-PCS; principal; 2018-10-22)
PROC: 5A1955Z Respiratory Ventilation, Greater than 96 Consecutive Hours (ICD-10-PCS; 2018-10-22)
PROC: 009U3ZX Drainage of Spinal Canal, Percutaneous Approach, Diagnostic (ICD-10-PCS; 2018-10-25)
DX: A41.9 Sepsis, unspecified organism (principal); G92 Toxic encephalopathy; R65.21 Severe sepsis with septic shock; J96.01 Acute respiratory failure with hypoxia; J69.0 Pneumonitis due to inhalation of food and vomit; R40.20 Unspecified coma; G93.1 Anoxic brain damage, not elsewhere classified; E87.0 Hyperosmolality and hypernatremia; T42.4X2A Poisoning by benzodiazepines, intentional self-harm, initial encounter; Z51.5 Encounter for palliative care; Z91.5 Personal history of self-harm; Y92.9 Unspecified place or not applicable; F31.9 Bipolar disorder, unspecified; L40.9 Psoriasis, unspecified; E16.2 Hypoglycemia, unspecified; F25.9 Schizoaffective disorder, unspecified; F17.210 Nicotine dependence, cigarettes, uncomplicated; F10.20 Alcohol dependence, uncomplicated; E87.6 Hypokalemia; E83.39 Other disorders of phosphorus metabolism; R19.5 Other fecal abnormalities; G40.901 Epilepsy, unspecified, not intractable, with status epilepticus; I95.9 Hypotension, unspecified; R40.2434 Glasgow coma scale score 3-8, 24 hours or more after hospital admission; Y90.0 Blood alcohol level of less than 20 mg/100 ml
CPT/HCPCS: 31500; 31720; 36415; 36569; 36600; 51702; 62270; 70450; 71045; 72125; 80047; 80048; 80053; 80069; 80177; 80185; 81001; 81025; 82330; 82803; 82945; 82947; 83605; 83690; 83735; 84100; 84132; 84145; 84146; 84157; 84436; 84443; 85014; 85018; 85025; 86255; 86316; 87040; 87070; 87205; 87483; 87493; 87529; 89051; 93005; 93010; 93306; 94002; 94003; 94640; 94760; 95819; 96361; 96374; 96375; 99291-25; 99292; C1751; C9113; G0480; J0295; J0330; J0461; J1165; J1265; J1650; J1815; J1953; J2060; J2270; J2930; J3010; J3475; J3480; J7030; J7040; J7042; J7050; J7060; J7070; J7120; Q2009